=== PATIENT | female | born 1950 | race Caucasian/White ===

== ENCOUNTER 2017-01-26 18:14 | Emergency (ER) | payer OTHER ==
[~2017-01-26 18:14] MED LIST: ASCA500 PO; ASPI81TA28 PO; EFF/375 PO; GLC/500 PO; HYDR-4715 PO; LORA0.5T12 PO; LOVA20TA4 PO; MELO7.5T5 PO; METO100T44 PO; MULTCAP42 PO; OMEG-112 PO; PRLSR20 PO; VALS-10 PO
[2017-01-26 18:17] VITALS: Ht 157.5 cm
[2017-01-26] MEDS ORDERED: SODIUM CHLORIDE 0.9% 1000ML 1,000 ML IV STA (18:30)
[2017-01-26] MEDS ORDERED: KETOROLAC TROMETHAMINE 30 MG/ML VIAL IV STA (18:30)
[2017-01-26] MEDS ORDERED: CEFTRIAXONE SOD INJ 1 GM ADDVIAL IV STA (18:30)
[2017-01-26] MEDS ORDERED: ACETAMINOPHEN 500 MG TAB PO STA (18:30)
[2017-01-26] MEDS ORDERED: HYDR-2977 PO (18:42)
[2017-01-26] MEDS ORDERED: GLC/500 PO (18:42)
[2017-01-26] MEDS ORDERED: GLC500 PO (18:42)
[2017-01-26] MEDS ORDERED: TPRSR/100 PO (18:42)
[2017-01-26] MEDS ORDERED: NRV/5 PO (18:42)
[2017-01-26] MEDS ORDERED: VALS-59 PO (18:42)
[2017-01-26] MEDS ORDERED: VENL37.593 PO (18:42)
[2017-01-26] MEDS ORDERED: AMR2 PO (18:42)
[2017-01-26] MEDS ORDERED: LPT40 PO (18:42)
[2017-01-26] MEDS ORDERED: OMEP20CA9 PO (18:42)
--- NOTE | 2017-01-26 19:09 | DIAGNOSTIC IMAGING REPORT ---
CHEST ONE VIEW PORTABLE CLINICAL HISTORY: 66 years-old Female presenting with Evaluate Fever/Sepsis. TECHNIQUE: Portable upright AP view of the chest was obtained. COMPARISON: 09/11/2015. FINDINGS: Atherosclerosis of aortic arch. Cardiac silhouette top normal in size. Mildly low lung volumes with hypoventilatory changes. Apparent opacity at the paramediastinal right apex likely relates to costochondral calcification. Bandlike opacity in the left midlung is unchanged from prior area no new focal infiltrate. No large effusion or pneumothorax. Degenerative changes of the thoracic spine. Degenerative changes of the acromioclavicular and glenohumeral joints. Near complete effacement of the right acromiohumeral interval could suggest complete rotator cuff tear. Cholecystectomy clips. IMPRESSION: 1. Mildly low lung volumes with hypoventilatory changes. No focal infiltrate to suggest pneumonia. Electronically signed by: Felix Brown M.D. 01/26/2017 7:08 PM Dictated Date/Time: 01/26/2017 7:06 PM
[2017-01-26 19:22] LABS: BASO % 0.1 %; BASO ABS # 0.02 K/uL (0-0.2); COMPLETE YES; HEMATOCRIT 38.9 % (37-47); IG% 0.4 %; LYMPH % 4.4 %; LYMPH ABS # 0.71 K/uL (1.2-3.4); MEAN CELL VOLUME 90.3 fL (80-100); MEAN CORPUSCULAR HEMOGLOBIN 31.1 pg (25-34); MEAN CORPUSCULAR HGB CONC 34.4 g/dl (32-36); MEAN PLATELET VOLUME 9.6 fL (7.4-10.4); NEUT % 87.1 %; PLATELET COUNT 186 K/uL (130-400); RED BLOOD COUNT 4.31 M/uL (4.2-5.4); WHITE BLOOD COUNT 16.32 K/uL (4.8-10.8)
[2017-01-26 19:23] LABS: URINE APPEARANCE TURBID (CLEAR); URINE BILIRUBIN NEG (NEG); URINE COLOR DK YELLOW; URINE EPITHELIAL CELL AUTO >30 /lpf (0-5); URINE NITRITE POS (NEG); URINE SPECIFIC GRAVITY 1.018 (1.000-1.030); UROBILINOGEN NEG (NEG); ZZUR CULT IF INDIC CLEAN CATCH YES
[2017-01-26 19:25] LABS: MANUAL MICROSCOPIC REQUIRED? NO; REVIEW REQ? NO
[2017-01-26 19:44] LABS: ALT/SGPT 21 U/L (12-78); BLOOD UREA NITROGEN 16 mg/dl (7-18); BUN/CREATININE RATIO 19.5 (10-20); CALCIUM 8.2 mg/dl (8.5-10.1); CARBON DIOXIDE 26 mmol/L (21-32); CHLORIDE 95 mmol/L (98-107); GLUCOSE 237 mg/dl (70-99); POTASSIUM 3.3 mmol/L (3.5-5.1); SODIUM 130 mmol/L (136-145)
[2017-01-26 19:45] VITALS: TEMP 38.2
[2017-01-26] MEDS ORDERED: SULFAMETHOXAZOLE/TRIMETHOPRIM DS 800/160MG TAB PO ONE (19:45)
[2017-01-26 19:49] LABS: ALKALINE PHOSPHATASE 77 U/L (45-117); AST/SGOT 15 U/L (15-37); CKMB/CK RATIO 0.9 (0-3.0)
[2017-01-26] MEDS ORDERED: SULF800T23 PO (19:57)
--- NOTE | 2017-01-26 19:58 | EMERGENCY ROOM VISIT NOTE ---
History Report prepared by Pamella: Lionel Bailey Under the Supervision of: Dr. Robby Nelson D.O. First contact with patient: 18:22 Chief Complaint: ILLNESS Stated Complaint: WEAK,HURTING ALL OVER,TROUBLE WITH BOWELS/URINATIO History of Present Illness The patient is a 66 year old female who presents to the Emergency Room with complaints of constant weakness for the past few days. She additionally states that she has been having a headache, and she has been having urinary burning for the past two weeks. She states that she is urinating frequently small amounts and more at night. The patient notes that she has not taken any medications for the burning. She additionally reports that she had a fever and chills yesterday. The patient denies any nausea, vomiting, runny nose, cough, sore throat, and abdominal pain. Source of History: patient Onset: a few days ago Position: other (global) Quality: other (weakness) Timing: constant Associated Symptoms: + fevers, + chills, + headache, + urinary symptoms, No nausea, No vomiting, No abdominal pain Review of Systems See HPI for pertinent positives & negatives. A total of 10 systems reviewed and were otherwise negative. Past Medical & Surgical Medical Problems: (1) Degenerative joint disease (DJD) of hip Family History No pertinent family history Social History Smoking Status: Never Smoker Marital Status: Housing Status: lives with family Current/Historical Medications Scheduled Amlodipine Besylate (Amlodipine Besylate), 5 MG PO DAILY Ascorbic Acid (Vitamin C), 500 MG PO QAM Aspirin (Aspirin Ec), 81 MG PO DAILY Atorvastatin (Atorvastatin Calcium), 40 MG PO QPM Glimepiride (Glimepiride), 2 MG PO DAILY Hydralazine HCl (Hydralazine HCl), 10 MG PO TID Meloxicam (Mobic), 7.5 MG PO BID Metformin HCl (Metformin HCl), 500 MG PO QAM Metformin Hcl (Glucophage), 1,000 MG PO QPM Metoprolol Succinate (Metoprolol Succinate ER), 100 MG PO DAILY Multiple Vitamin (Multivitamins), 1 TAB PO QAM Lcwrh-1-Rssp Ethyl Esters ([place]-3), 1 CAP PO QAM Omeprazole (Prilosec), 20 MG PO BID Sulfa/Trimethoprim (Bactrim Ds 800MG/160MG), 1 TAB PO BID Valsartan (Valsartan), 320 MG PO DAILY Venlafaxine Hcl (Venlafaxine Extended Rel), 37.5 MG PO DAILY Allergies Coded Allergies: Latex1 -Allergic Contact Dermititis (Verified Allergy, Intermediate, "red welts, 09/10/15) Morphine (Verified Allergy, Intermediate, HIVES, 09/10/15) Hydrocodone (Verified Allergy, Mild, "itching", 09/10/15) Tramadol (Verified Allergy, Mild, "itching", 09/10/15) Amitriptyline (Verified Allergy, Unknown, throat swells, 09/10/15) Levofloxacin (Verified Allergy, Unknown, UNKNOWN, 09/10/15) Rofecoxib (Verified Allergy, Unknown, `, 09/10/15) Lisinopril (Verified Adverse Reaction, Mild, "cough", 09/10/15) Nortriptyline (Verified Adverse Reaction, Mild, "was wide awake", 09/10/15) CI Pigment Blue 63 (Verified Adverse Reaction, Unknown, "severe muscle aches", 09/10/15) Duloxetine (Verified Adverse Reaction, Unknown, "severe muscle aches", ) Physical Exam Vital Signs Date Time Temp Pulse Resp B/P (MAP) Pulse Ox O2 Delivery O2 Flow Rate FiO2 01/26/17 19:45 38.2 87 01/26/17 19:02 83 01/26/17 18:17 38.3 86 18 151/83 94 Room Air Physical Exam CONSTITUTIONAL/VITAL SIGNS: Reviewed / noted above. GENERAL: Non-toxic in appearance. INTEGUMENTARY: Warm, dry, and [place]. HEAD: Normocephalic. EYES: without scleral icterus or trauma. ENT/OROPHARYNX: clear and moist. LYMPHADENOPATHY/NECK: Is supple without lymphadenopathy or meningismus. RESPIRATORY: Lungs clear and equal. CARDIOVASCULAR: Regular rate and rhythm. GI/ABDOMEN: Soft and nontender. No organomegaly or pulsatile mass. No rebound or guarding. Normal bowel sounds. EXTREMITIES: Warm and well perfused. BACK: Bilateral CVA tenderness NEUROLOGICAL: Intact without focal deficits. PSYCHIATRIC: normal affect. MUSCULOSKELETAL: Normally developed with good muscle tone. Medical Decision & Procedures ER Provider Diagnostic Interpretation: Radiology results as stated below per my review and radiologist interpretation: CHEST ONE VIEW PORTABLE CLINICAL HISTORY: 66 years-old Female presenting with Evaluate Fever/Sepsis. TECHNIQUE: Portable upright AP view of the chest was obtained. COMPARISON: 09/11/2015. FINDINGS: Atherosclerosis of aortic arch. Cardiac silhouette top normal in size. Mildly low lung volumes with hypoventilatory changes. Apparent opacity at the paramediastinal right apex likely relates to costochondral calcification. Bandlike opacity in the left midlung is unchanged from prior area no new focal infiltrate. No large effusion or pneumothorax. Degenerative changes of the thoracic spine. Degenerative changes of the acromioclavicular and glenohumeral joints. Near complete effacement of the right acromiohumeral interval could suggest complete rotator cuff tear. Cholecystectomy clips. IMPRESSION: 1. Mildly low lung volumes with hypoventilatory changes. No focal infiltrate to suggest pneumonia. Electronically signed by: Felix Brown M.D. 01/26/2017 7:08 PM Dictated Date/Time: 01/26/2017 7:06 PM Laboratory Results 01/26/17 18:52 Red Blood Count 4.31, Mean Corpuscular Volume 90.3, Mean Corpuscular Hemoglobin 31.1, Mean Corpuscular Hemoglobin Concent 34.4, Mean Platelet Volume 9.6, Neutrophils (%) (Auto) 87.1, Lymphocytes (%) (Auto) 4.4, Monocytes (%) (Auto) 8.0, Eosinophils (%) (Auto) 0.0, Basophils (%) (Auto) 0.1, Neutrophils # (Auto) 14.22, Lymphocytes # (Auto) 0.71, Monocytes # (Auto) 1.30, Eosinophils # (Auto) 0.00, Basophils # (Auto) 0.02 01/26/17 18:52 Test 01/26/17 18:21 01/26/17 18:45 01/26/17 18:52 Bedside Glucose 212 mg/dl (70-90) Urine Color DK YELLOW Urine Appearance TURBID (CLEAR) Urine pH 6.0 (4.5-7.5) Urine Specific [place] 1.018 (1.000-1.030) Urine Protein 2+ (NEG) Urine Glucose (UA) 1+ (NEG) Urine Ketones 3+ (NEG) Urine Occult Blood 2+ (NEG) Urine Nitrite POS (NEG) Urine Bilirubin NEG (NEG) Urine Urobilinogen NEG (NEG) Urine Leukocyte Esterase LARGE (NEG) Urine WBC (Auto) >30 /hpf (0-5) Urine RBC (Auto) 10-30 /hpf (0-4) Urine Hyaline Casts (Auto) 1-5 /lpf (0-5) Urine Epithelial Cells (Auto) >30 /lpf (0-5) Urine Bacteria (Auto) 4+ (NEG) White Blood Count 16.32 K/uL (4.8-10.8) Red Blood Count 4.31 M/uL (4.2-5.4) Hemoglobin 13.4 g/dL (12.0-16.0) Hematocrit 38.9 % (37-47) Mean Corpuscular Volume 90.3 fL (80-100) Mean Corpuscular Hemoglobin 31.1 pg (25-34) Mean Corpuscular Hemoglobin Concent 34.4 g/dl (32-36) Platelet Count 186 K/uL (130-400) Mean Platelet Volume 9.6 fL (7.4-10.4) Neutrophils (%) (Auto) 87.1 % Lymphocytes (%) (Auto) 4.4 % Monocytes (%) (Auto) 8.0 % Eosinophils (%) (Auto) 0.0 % Basophils (%) (Auto) 0.1 % Neutrophils # (Auto) 14.22 K/uL (1.4-6.5) Lymphocytes # (Auto) 0.71 K/uL (1.2-3.4) Monocytes # (Auto) 1.30 K/uL (0.11-0.59) Eosinophils # (Auto) 0.00 K/uL (0-0.5) Basophils # (Auto) 0.02 K/uL (0-0.2) RDW Standard Deviation 41.0 fL (36.4-46.3) RDW Coefficient of Variation 12.3 % (11.5-14.5) Immature Granulocyte % (Auto) 0.4 % Immature Granulocyte # (Auto) 0.07 K/uL (0.00-0.02) Anion Gap 9.0 mmol/L (3-11) Estimated GFR () 87.8 Estimated GFR (Non- 75.8 BUN/Creatinine Ratio 19.5 (10-20) Calcium Level 8.2 mg/dl (8.5-10.1) Total Bilirubin 1.7 mg/dl (0.2-1) Direct Bilirubin 0.4 mg/dl (0-0.2) Aspartate Amino Transf (AST/SGOT) 15 U/L (15-37) Alanine Aminotransferase (ALT/SGPT) 21 U/L (12-78) Alkaline Phosphatase 77 U/L (45-117) Total Creatine Kinase 86 U/L (26-192) Creatine Kinase MB 0.8 ng/ml (0.5-3.6) Creatine Kinase MB Ratio 0.9 (0-3.0) Total Protein 7.3 gm/dl (6.4-8.2) Albumin 3.2 gm/dl (3.4-5.0) Laboratory results as stated above per my review. Medications Administered Medications (Trade) Dose Ordered Sig/Shanta Route Start Time Stop Time Status Last Admin Dose Admin Sodium Chloride 1,000 ml @ 999 mls/hr Q1H1M STAT IV 01/26/17 18:30 01/26/17 19:30 DC 01/26/17 19:10 999 MLS/HR Acetaminophen (Tylenol Tab) 1,000 mg NOW STAT PO 01/26/17 18:30 01/26/17 18:35 DC 01/26/17 19:11 1,000 MG Ceftriaxone Sodium (Rocephin Inj) 1 gm NOW STAT IV 01/26/17 18:30 01/26/17 18:35 DC 01/26/17 19:10 1 GM Ketorolac Tromethamine (Toradol Inj) 30 mg NOW STAT IV 01/26/17 18:30 01/26/17 18:35 DC 01/26/17 19:11 30 MG Trimethoprim/ Sulfamethoxazole (Septra Ds 800/ 160MG Tab) 1 tab NOW ONCE PO 01/26/17 19:45 01/26/17 19:52 DC 01/26/17 19:58 1 TAB ED Course 1821: Previous medical records were reviewed. The patient was evaluated in room C7. A complete history and physical examination was performed. 0: Toradol 30mg IV, Rocephin 1gm IV, Tylenol Tab 1000mg PO, Sodium Chloride 1000 ml @ 999 mls/hr IV 1944: Septra Ds 800/160mg Tab PO 1957: On reevaluation, the patient is doing well. I discussed the results and findings with the patient. She verbalized agreement of the treatment plan. She was discharged home. Medical Decision Differential includes viral illness, influenza, streptococcal pharyngitis, meningitis, pneumonia, sinusitis, UTI, pyelonephritis, otitis media. This is a 66-year-old female who presents to the ED with a chief complaint of generalized weakness. The patient reports painful urination for the past week to 2 weeks. She also reports achiness, headache and weakness this started a couple of days ago. She denies any upper respiratory complaints. No nausea vomiting. She has had subjective fevers yesterday and a fever today here. Temperature here is 38.3. Vital signs are otherwise stable. Physical exam did reveals some mild bilateral CVA tenderness. Laboratory studies reveal findings suggesting a UTI. Blood cell count is elevated at 16,000. Glucose is slightly elevated. She is diabetic. The patient was treated with 1 L normal saline IV. Rocephin 1 g IV as well as by mouth Bactrim. She was given by mouth Tylenol and IV Toradol. She was told the results of the test per she was feeling better. She is felt to be stable for discharge and outpatient follow-up. She was discharged on Bactrim. She's not had any nausea or vomiting. If her symptoms worsen she will return for reassessment. Medication Reconcilliation Current Medication List: was personally reviewed by me Blood Pressure Screening Patient's blood pressure: Elevated blood pressure Blood pressure disposition: Referred to PCP Impression Primary Impression: UTI (urinary tract infection) Additional Impression: Pyelonephritis Scribe Attestation The scribe's documentation has been prepared under my direction and personally reviewed by me in its entirety. I confirm that the note above accurately reflects all work, treatment, procedures, and medical decision making performed by me. Departure Information Dispostion Home / Self-Care Prescriptions Sulfa/Trimethoprim (Bactrim Ds 800MG/160MG) Tab 1 TAB PO BID, #14 TAB Prov: Robby Nelson D.O. 01/26/17 Referrals Jeff Montague M.D. (PCP) Forms HOME CARE DOCUMENTATION FORM, IMPORTANT VISIT INFORMATION, WORK / SCHOOL INSTRUCTIONS Patient Instructions ED UTI Cystitis Female, My [facility] Additional Instructions Follow-up with your doctor for further care and evaluation in 1-2 days. Return to the emergency department for worsening or new symptoms or any concerns. You have been examined and treated today on an emergency basis only. This is not a substitute for, or an effort to provide, complete comprehensive medical care. It is impossible to recognize and treat all injuries or illnesses in a single emergency department visit. It is therefore important that you follow up closely with your doctor. Call as soon as possible for an appointment. Problem Qualifiers
[2017-01-26 20:22] VITALS: BP 139/72; PULSE 81; O2SAT 95
== END 2017-01-26 20:23 | disposition home or self-care (01) ==
LOC: C.EDB 18:15 → C.EDC 20:23
DX: N39.0 Urinary tract infection, site not specified (principal); N12 Tubulo-interstitial nephritis, not specified as acute or chronic; M16.10 Unilateral primary osteoarthritis, unspecified hip; Z79.82 Long term (current) use of aspirin

== ENCOUNTER 2017-01-27 12:36 | Inpatient (IN) | payer OTHER ==
[~2017-01-27] VITALS: Ht 157.5 cm; Wt 99.0 kg
[~2017-01-27 12:36] MED LIST changes: +AMR2 PO; -EFF/375 PO; +GLC500 PO; +HYDR-2977 PO; -HYDR-4715 PO; -LORA0.5T12 PO; -LOVA20TA4 PO; +LPT40 PO; -METO100T44 PO; +NRV/5 PO; +OMEP20CA9 PO; -PRLSR20 PO; +SULF800T23 PO; +TPRSR/100 PO; -VALS-10 PO; +VALS-59 PO; +VENL37.593 PO
--- NOTE | 2017-01-27 12:51 | EMERGENCY ROOM VISIT NOTE ---
History Report prepared by Pamella: John Sommers Under the Supervision of: Dr. Robby Luu M.D. First contact with patient: 12:47 Chief Complaint: REFERRED BY DOCTOR Stated Complaint: SEEN HERE LAST NIGHT, WAS CALLED TO COME BACK History of Present Illness The patient is a 66 year old female who presents to the Emergency Room with complaints of worsening, severe, headache beginning three days ago. She notes Tylenol helps her headache. The patient states she was evaluated last night in the ED for chest tightness, headache, and abdominal pain that radiates to her back. She reports since last night she has developed diarrhea. The patient notes she received a call today stating her blood and urine cultures were positive for bacteria. She denies a history of positive cultures. Source of History: patient Onset: three days ago Position: head Symptom Intensity: severe Quality: ache Timing: worsening Modifying Factors (Relieving): tylenol Associated Symptoms: + chest pain (tightness), + abdominal pain, + diarrhea Note: Denies a history of positive cultures Review of Systems See HPI for pertinent positives & negatives. A total of 10 systems reviewed and were otherwise negative. Past Medical & Surgical Medical Problems: (1) Bacteremia (2) Degenerative joint disease (DJD) of hip Family History Diabetes mellitus Hypertension Social History Smoking Status: Never Smoker Smokeless Tobacco Use: No Alcohol Use: none Marital Status: Housing Status: lives with family Occupation Status: unemployed Current/Historical Medications Scheduled Amlodipine Besylate (Amlodipine Besylate), 5 MG PO DAILY Ascorbic Acid (Vitamin C), 500 MG PO QAM Aspirin (Aspirin Ec), 81 MG PO DAILY Atorvastatin (Atorvastatin Calcium), 40 MG PO QPM Glimepiride (Glimepiride), 2 MG PO DAILY Hydralazine HCl (Hydralazine HCl), 10 MG PO TID Meloxicam (Mobic), 7.5 MG PO BID Metformin HCl (Metformin HCl), 500 MG PO QAM Metformin Hcl (Glucophage), 1,000 MG PO QPM Metoprolol Succinate (Metoprolol Succinate ER), 100 MG PO DAILY Multiple Vitamin (Multivitamins), 1 TAB PO QAM Emirc-4-Pfwq Ethyl Esters ([place]-3), 1 CAP PO QAM Omeprazole (Prilosec), 20 MG PO BID Sulfa/Trimethoprim (Bactrim Ds 800MG/160MG), 1 TAB PO BID Valsartan (Valsartan), 320 MG PO DAILY Venlafaxine Hcl (Venlafaxine Extended Rel), 37.5 MG PO DAILY Allergies Coded Allergies: Latex1 -Allergic Contact Dermititis (Verified Allergy, Intermediate, "red welts, 01/27/17) Morphine (Verified Allergy, Intermediate, HIVES, 01/27/17) Hydrocodone (Verified Allergy, Mild, "itching", 01/27/17) Tramadol (Verified Allergy, Mild, "itching", 01/27/17) Amitriptyline (Verified Allergy, Unknown, throat swells, 01/27/17) Levofloxacin (Verified Allergy, Unknown, UNKNOWN, 01/27/17) Rofecoxib (Verified Allergy, Unknown, `, 01/27/17) Lisinopril (Verified Adverse Reaction, Mild, "cough", 01/27/17) Nortriptyline (Verified Adverse Reaction, Mild, "was wide awake", 01/27/17 ) CI Pigment Blue 63 (Verified Adverse Reaction, Unknown, "severe muscle aches", 01/27/17) Duloxetine (Verified Adverse Reaction, Unknown, "severe muscle aches", ) Physical Exam Vital Signs Date Time Temp Pulse Resp B/P (MAP) Pulse Ox O2 Delivery O2 Flow Rate FiO2 01/27/17 17:09 37.8 83 18 141/72 96 Room Air 01/27/17 15:43 37.2 79 18 136/72 96 Room Air 01/27/17 14:19 78 143/76 96 01/27/17 13:47 77 01/27/17 12:45 36.8 76 22 131/80 100 Room Air Physical Exam GENERAL: Patient is a healthy-appearing well-nourished 66 year old female. No evidence of meningitis or encephalitis. HEAD: Normocephalic atraumatic EYES: Ocular movements intact pupils equal and react to light OROPHARYNX mucous membranes are moist no exudates present no erythema or edema present NECK: Supple no nuchal rigidity CHEST: Good equal expansion LUNGS: Clear and equal to auscultation CARDIAC: Normal S1 and S2 ABDOMEN: Soft nontender no guarding BACK: No CVA tenderness EXTREMITIES: No pain upon palpation normal muscle strength in all groups no clubbing cyanosis or edema NEURO: Patient is following commands and answering questions appropriately. Alert and oriented x3 Cranial Nerves 2-12 grossly intact Medical Decision & Procedures ER Provider Diagnostic Interpretation: Radiology results as stated below per my review and radiologist interpretation: CHEST ONE VIEW PORTABLE HISTORY: Sepsis COMPARISON: Chest 01/26/2017. FINDINGS: There are low lung volumes. The heart remains top normal in size. No pleural effusions. No pneumothorax. A few linear densities within the left mid to lower lung zone favor scarring or atelectasis. This remains unchanged. No new focal lung consolidations. No evidence for pulmonary edema. IMPRESSION: No significant change compared to the prior study. No acute process. Electronically signed by: Dimitry Glover M.D. 01/27/2017 2:21 PM Dictated Date/Time: 01/27/2017 2:18 PM Laboratory Results 01/27/17 13:25 Red Blood Count 4.04, Mean Corpuscular Volume 89.6, Mean Corpuscular Hemoglobin 30.9, Mean Corpuscular Hemoglobin Concent 34.5, Mean Platelet Volume 9.6, Neutrophils (%) (Auto) 84.7, Lymphocytes (%) (Auto) 7.5, Monocytes (%) (Auto) 7.4, Eosinophils (%) (Auto) 0.0, Basophils (%) (Auto) 0.2, Neutrophils # (Auto) 10.92, Lymphocytes # (Auto) 0.97, Monocytes # (Auto) 0.96, Eosinophils # (Auto) 0.00, Basophils # (Auto) 0.02 01/27/17 13:25 Test 01/27/17 13:13 01/27/17 13:25 01/27/17 13:32 01/27/17 15:00 Influenza Type A (RT-PCR) Neg for Influ A (NEG) Influenza Type A Antigen Neg for Influ A (NEG) Influenza Type B Antigen Neg for Influ B (NEG) Influenza Type B (RT-PCR) Neg for Influ B (NEG) White Blood Count 12.90 K/uL (4.8-10.8) Red Blood Count 4.04 M/uL (4.2-5.4) Hemoglobin 12.5 g/dL (12.0-16.0) Hematocrit 36.2 % (37-47) Mean Corpuscular Volume 89.6 fL (80-100) Mean Corpuscular Hemoglobin 30.9 pg (25-34) Mean Corpuscular Hemoglobin Concent 34.5 g/dl (32-36) Platelet Count 160 K/uL (130-400) Mean Platelet Volume 9.6 fL (7.4-10.4) Neutrophils (%) (Auto) 84.7 % Lymphocytes (%) (Auto) 7.5 % Monocytes (%) (Auto) 7.4 % Eosinophils (%) (Auto) 0.0 % Basophils (%) (Auto) 0.2 % Neutrophils # (Auto) 10.92 K/uL (1.4-6.5) Lymphocytes # (Auto) 0.97 K/uL (1.2-3.4) Monocytes # (Auto) 0.96 K/uL (0.11-0.59) Eosinophils # (Auto) 0.00 K/uL (0-0.5) Basophils # (Auto) 0.02 K/uL (0-0.2) RDW Standard Deviation 40.0 fL (36.4-46.3) RDW Coefficient of Variation 12.2 % (11.5-14.5) Immature Granulocyte % (Auto) 0.2 % Immature Granulocyte # (Auto) 0.03 K/uL (0.00-0.02) Prothrombin Time 11.3 SECONDS (9.0-12.0) Prothromb Time International Ratio 1.1 (0.9-1.1) Activated Partial Thromboplast Time 27.5 SECONDS (21.0-31.0) Partial Thromboplastin Ratio 1.1 Anion Gap 9.0 mmol/L (3-11) Est Creatinine Clear Calc Drug Dose 72.2 ml/min Estimated GFR () 85.2 Estimated GFR (Non- 73.5 BUN/Creatinine Ratio 18.1 (10-20) Calcium Level 7.7 mg/dl (8.5-10.1) Total Bilirubin 1.0 mg/dl (0.2-1) Aspartate Amino Transf (AST/SGOT) 16 U/L (15-37) Alanine Aminotransferase (ALT/SGPT) 20 U/L (12-78) Alkaline Phosphatase 77 U/L (45-117) Total Creatine Kinase 103 U/L (26-192) Creatine Kinase MB 1.8 ng/ml (0.5-3.6) Creatine Kinase MB Ratio 1.7 (0-3.0) Troponin I < 0.015 ng/ml (0-0.045) Total Protein 6.6 gm/dl (6.4-8.2) Albumin 2.7 gm/dl (3.4-5.0) Globulin 3.9 gm/dl (2.5-4.0) Albumin/Globulin Ratio 0.7 (0.9-2) Bedside Lactic Acid Venous 1.78 mmol/L (0.90-1.70) Urine Color YELLOW Urine Appearance CLOUDY (CLEAR) Urine pH 6.5 (4.5-7.5) Urine Specific [place] 1.010 (1.000-1.030) Urine Protein TRACE (NEG) Urine Glucose (UA) TRACE (NEG) Urine Ketones TRACE (NEG) Urine Occult Blood NEG (NEG) Urine Nitrite NEG (NEG) Urine Bilirubin NEG (NEG) Urine Urobilinogen NEG (NEG) Urine Leukocyte Esterase SMALL (NEG) Urine WBC (Auto) 10-30 /hpf (0-5) Urine RBC (Auto) 0-4 /hpf (0-4) Urine Hyaline Casts (Auto) 0 /lpf (0-5) Urine Epithelial Cells (Auto) 10-20 /lpf (0-5) Urine Bacteria (Auto) NEG (NEG) Labs reviewed by ED physician. Medications Administered Medications (Trade) Dose Ordered Sig/Shanta Route Start Time Stop Time Status Last Admin Dose Admin Sodium Chloride 500 ml @ 999 mls/hr Q31M ONCE IV 01/27/17 13:00 01/27/17 13:30 DC 01/27/17 13:18 999 MLS/HR Vancomycin HCl (Vancomycin 1gm/ 270ml Nss) 1 gm ONE STAT IV 01/27/17 13:00 01/27/17 13:03 DC 01/27/17 13:46 1 GM Cefepime HCl 2000 mg/Dextrose 122 ml @ 200 mls/hr NOW STAT IV 01/27/17 13:00 01/27/17 13:36 DC 01/27/17 13:43 200 MLS/HR Clindamycin Phosphate (Cleocin 600mg/ 54ml D5W) 600 mg ONE STAT IV 01/27/17 13:00 01/27/17 13:03 DC 01/27/17 13:00 600 MG Ketorolac Tromethamine (Toradol Inj) 30 mg NOW STAT IV 01/27/17 13:07 01/27/17 13:10 DC 01/27/17 13:41 30 MG Prochlorperazine Edisylate (Compazine Inj) 10 mg NOW STAT IV 01/27/17 13:07 01/27/17 13:10 DC 01/27/17 13:51 10 MG Potassium Chloride (Klor-Con M10) 40 meq NOW STAT PO 01/27/17 14:31 01/27/17 14:32 DC 01/27/17 14:43 40 MEQ ECG Indication: other (sepsis) Rate (beats per minute): 74 Rhythm: normal sinus Findings: no acute ischemic change, no ectopy ED Course 1256: Past medical records reviewed. The patient was evaluated in room B05. A complete history and physical examination was performed. 1300: Ordered Clindamycin Phosphate 600mg IV, Cefepime HCl 2000mg/Dextrose 122ml @ 200 mls/hr, Vancomycin HCl 1gm IV, Sodium Chloride 500 ml @ 999 mls/hr IV 1307: Prochlorperazine Edisylate 10mg IV, Ketorolac Tromethamine 30mg IV 1431: Ordered Potassium Chloride 40 meq PO 1516: I discussed the patient's case with Kala Handy [facility]martin. The patient will be evaluated for further management and care. Medical Decision Differential diagnosis: Etiologies such as sepsis, UTI, pneumonia, metabolic, electrolyte abnormalities , cardiac sources, intracerebral event, toxicologic, neurologic, as well as others were entertained. This is a 66-year-old female who presents back to the emergency department after having positive blood cultures that were drawn yesterday. In addition the patient also has a positive urine culture. She has no evidence of meningitis encephalitis on examination. She does have slight elevation in her lactic acid as well as elevation in her white blood count cell count. She was pancultured up again and started on additional antibiotics including cefepime clindamycin and vancomycin. I did discuss her case with the hospitalist service who agreed to admit the patient. Patient was in agreement with the treatment plan. Medication Reconcilliation Current Medication List: was personally reviewed by me Blood Pressure Screening Patient's blood pressure: Elevated blood pressure Monitored by hospitalist. Consults Time Called: 1428 Consulting Physician: Kala Handy Hospitalist Returned Call: [phone] [facility] The patient will be evaluated for further management and care. Impression Primary Impression: UTI (urinary tract infection) Scribe Attestation The scribe's documentation has been prepared under my direction and personally reviewed by me in its entirety. I confirm that the note above accurately reflects all work, treatment, procedures, and medical decision making performed by me. Departure Information Dispostion Being Evaluated By Hospitalist Referrals Jeff Montague M.D. (PCP) Patient Instructions My [facility] Problem Qualifiers Primary Impression: UTI (urinary tract infection) Urinary tract infection type: acute cystitis Hematuria presence: without hematuria Qualified Codes: N30.00 - Acute cystitis without hematuria
[2017-01-27] MEDS ORDERED: CEFEPIME IV 2,000 MG in DEXTROSE 5% 100ML 100 ML IV STA (13:00)
[2017-01-27] MEDS ORDERED: SODIUM CHLORIDE 0.9% 1000ML 500 ML IV ONE (13:00)
[2017-01-27] MEDS ORDERED: VANCOMYCIN 1GM/270ML NSS IV STA (13:00)
[2017-01-27] MEDS ORDERED: CLINDAMYCIN 600 MG/54 ML D5W IV STA (13:00)
[2017-01-27] MEDS ORDERED: DiphenhydrAMINE HCL 50 MG/ML VIAL IV STA (13:07)
[2017-01-27] MEDS ORDERED: PROCHLORPERAZINE 5 MG/ML 2 ML VIAL IV STA (13:07)
[2017-01-27] MEDS ORDERED: KETOROLAC TROMETHAMINE 30 MG/ML VIAL IV STA (13:07)
[2017-01-27 13:54] LABS: BASO % 0.2 %; BASO ABS # 0.02 K/uL (0-0.2); COMPLETE YES; HEMATOCRIT 36.2 % (37-47); IG% 0.2 %; LYMPH % 7.5 %; LYMPH ABS # 0.97 K/uL (1.2-3.4); MEAN CELL VOLUME 89.6 fL (80-100); MEAN CORPUSCULAR HEMOGLOBIN 30.9 pg (25-34); MEAN CORPUSCULAR HGB CONC 34.5 g/dl (32-36); MEAN PLATELET VOLUME 9.6 fL (7.4-10.4); MONO % 7.4 %; NEUT % 84.7 %; PLATELET COUNT 160 K/uL (130-400); RED BLOOD COUNT 4.04 M/uL (4.2-5.4)
[2017-01-27 14:03] LABS: INR 1.1 (0.9-1.1); PARTIAL THROMBOPLASTIN RATIO 1.1; PROTHROMBIN TIME (PATIENT) 11.3 SECONDS (9.0-12.0)
[2017-01-27 14:17] LABS: BUN/CREATININE RATIO 18.1 (10-20); CALCIUM 7.7 mg/dl (8.5-10.1); CREATININE 0.82 mg/dl (0.60-1.20); POTASSIUM 3.2 mmol/L (3.5-5.1)
--- NOTE | 2017-01-27 14:23 | DIAGNOSTIC IMAGING REPORT ---
CHEST ONE VIEW PORTABLE HISTORY: Sepsis COMPARISON: Chest 01/26/2017. FINDINGS: There are low lung volumes. The heart remains top normal in size. No pleural effusions. No pneumothorax. A few linear densities within the left mid to lower lung zone favor scarring or atelectasis. This remains unchanged. No new focal lung consolidations. No evidence for pulmonary edema. IMPRESSION: No significant change compared to the prior study. No acute process. Electronically signed by: Dimitry Glover M.D. 01/27/2017 2:21 PM Dictated Date/Time: 01/27/2017 2:18 PM
[2017-01-27 14:24] LABS: ALB/GLOB RATIO 0.7 (0.9-2)
[2017-01-27] MEDS ORDERED: POTASSIUM CHLORIDE 10 MEQ TABCR PO STA (14:31)
[2017-01-27 14:48] LABS: CKMB/CK RATIO 1.7 (0-3.0)
[2017-01-27 15:23] LABS: URINE APPEARANCE CLOUDY (CLEAR); URINE BILIRUBIN NEG (NEG); URINE COLOR YELLOW; URINE NITRITE NEG (NEG); URINE PH 6.5 (4.5-7.5); UROBILINOGEN NEG (NEG)
[2017-01-27 15:24] LABS: MANUAL MICROSCOPIC REQUIRED? NO; REVIEW REQ? YES
[2017-01-27 15:33] LABS: ZZUR CULT IF INDIC CLEAN CATCH YES
[2017-01-27 15:42] LABS: INFLUENZA A PCR Neg for Influ A (NEG); INFLUENZA B PCR Neg for Influ B (NEG)
[2017-01-27] MEDS ORDERED: ONDANSETRON INJ 2 MG/ML 2 ML VIAL IV PRN (16:45)
[2017-01-27] MEDS ORDERED: CEFEPIME IV 2,000 MG in DEXTROSE 5% 100ML 100 ML IV SCH (16:45)
[2017-01-27] MEDS ORDERED: GLUCOSE 40% GEL 15 GM TUBE PO PRN (18:00)
[2017-01-27] MEDS ORDERED: GLUCOSE 10 TABS/TUBE PO PRN (18:00)
[2017-01-27] MEDS ORDERED: DEXTROSE 50% 50 ML SYR IV PRN (18:00)
[2017-01-27] MEDS ORDERED: GLUCAGON FOR INJ 1 MG VIAL SQ PRN (18:00)
[2017-01-27 18:05] VITALS: BP 141/72; PULSE 83; TEMP 37.3; O2SAT 95; Ht 157.5 cm; Wt 99.0 kg
[2017-01-27] MEDS: SODIUM CHLORIDE 0.9% 1000ML 1,000 ML IV SCH (18:26)
[2017-01-27] MEDS ORDERED: CEFEPIME CONSULT ACTIVE PRN ×2 (18:30)
--- NOTE | 2017-01-27 19:38 | HISTORY & PHYSICAL EXAMINATION ---
DATE OF ADMISSION: 01/27/2017 CHIEF COMPLAINT: Not feeling well and UTI. HISTORY OF PRESENT ILLNESS: This is a 66-year-old female with past medical history significant for diabetes, diabetic polyneuropathy, hypertension, anxiety, obesity, osteoarthrosis, hyperlipidemia, GERD, presents with UTI and bacteremia. The patient was having buring sensations while micturating and frequent urinations for about a week and a week and a half. For the last 3 days, it got worse, had running temperatures and feeling generalized weak and tired and she came to the ER yesterday, thought to have UTI and given a dose of IV Rocephin and discharged on Bactrim as she was feeling better. But today the cultures came back as bacteremia growing gram negative bacilli in the urine and the blood and she was advised to come to the ER. The patient states that she did not fill up her Bactrim tablets and not taking them. She said after she went home, she felt better yesterday after antibiotic received in the ER, but since today morning again she was feeling weak and tired and having lower abdominal pain and she complains of flank pain. Currently resting comfortably, hemodynamically stable, afebrile in the ER today. Has some headaches, no dizziness, no blurred vision, no sore throat, no cough but has some difficulty swallowing from dryness. Denies any chest pain, no shortness of breath, Normal bowel movements. Appetite is okay. No swelling in the legs. ALLERGIES: AMITRIPTYLINE, CYMBALTA, HYDROCODONE, LASIX, LISINOPRIL, MORPHINE, NORTRIPTYLINE AND TRAMADOL. PAST MEDICAL HISTORY: As mentioned above. PAST SURGICAL HISTORY: Left knee arthroscopy, carpal tunnel surgery, EGD with biopsy, left knee arthroscopy and meniscectomy, vaginal hysterectomy, cholecystectomy. MEDICATIONS: The patient is on glimepiride 2 mg p.o. daily, atorvastatin 40 mg p.o. daily, amlodipine 5 mg p.o. daily, metformin 500 mg in the a.m. and 1000 mg in p.m., Toprol-XL 100 mg p.o. daily, Levaquin 7.5 mg p.o. b.i.d., Effexor XR 37.5 mg p.o. daily, omeprazole 20 mg p.o. b.i.d., Valsartan 320 mg p.o. daily, hydralazine 10 mg p.o. t.i.d., Benadryl 25 mg p.o. q. 6 hours p.r.n., omega 3 fish oil 1000 mg p.o. b.i.d., vitamin C 500 mg p.o. daily, aspirin 81 mg p.o. daily, multivitamin 1 tablet p.o. daily. FAMILY HISTORY: Significant for brother has arthritis, diabetes. Father has diabetes. Mother has heart disorder. SOCIAL HISTORY: . No tobacco abuse, alcohol rare. No drug abuse. REVIEW OF SYMPTOMS: As per HPI. Rest of review of symptoms negative. PHYSICAL EXAMINATION: GENERAL: The patient is obese, not in distress. VITAL SIGNS: Temperature 37.2, pulse 79, respiratory rate 18, blood pressure 136/72, oxygen 96% on room air. HEENT: No pallor, no icterus. Pupils equal, round, and reactive to light. NECK: No JVD, no neck masses, no carotid bruits. CARDIOVASCULAR: S1, S2 heard, regular rate and rhythm, no murmur, no gallop. RESPIRATORY SYSTEM: Clear to auscultation bilaterally. No wheezing, no crackles. ABDOMEN: Soft, bowel sounds present. Mild abdominal discomfort mostly in the lower abdomen, mild bilateral CVA tenderness present. No guarding, no rigidity. CENTRAL NERVOUS SYSTEM: Cranial nerves II-XII are grossly intact. Nonfocal. EXTREMITIES: No edema. No erythema. LABS: WBC 12.9, hemoglobin 12.5, hematocrit 36.2, platelets 160. Sodium 129, potassium 3.2, chloride 96, bicarbonate 24, BUN 15, creatinine 0.5, serum glucose 216. Point of care lactic acid 1.7. Calcium is 7.7. Total bilirubin 1. AST 16, ALT 20. Alkaline phosphatase 77. Total creatinine kinase 103. Troponin I less than 0.015. PT 11.2, INR 1.1, APTT 27.5. Urinalysis positive for leukocyte esterase. Influenza negative. Chest x-ray no acute process seen. EKG normal sinus rhythm with a rate of 74. No acute ST changes seen. ASSESSMENT AND PLAN: This is a 66-year-old female who presents with urinary tract infection and bacteremia. 1. Urinary tract infection bacteremia, bilateral costovertebral angle mild tenderness. We will place her on IV cefepime, follow the final cultures of the blood and urine. IV fluids. We will also check renal ultrasound to rule out any pyelonephritis. Need total duration of 14 days of antibiotics. 2. Hyponatremia and hypokalemia, possibly from dehydration. We will replace the potassium. We will place her on fluids and follow the labs. 3. History of diabetes. We will hold home medication of glimepiride and metformin; place her on Lantus and insulin sliding scale. Follow the blood sugars while in the hospital. 4. History of hypertension. Continue amlodipine, Toprol-XL, hydralazine, valsartan. We will monitor the blood pressure. 5. Gastroesophageal reflux disease, continue PPI. 6. Osteoarthritis on Meloxicam which we will continue. 7. History of depression. Continue Effexor XR. 8. Deep venous thrombosis prophylaxis, Lovenox. 9. Disposition: Admit to medical floor, expect discharge home and follow with the family doctor. Level 1 full code. MTDD
[2017-01-27] MEDS: HydrALAZINE 10 MG TAB PO SCH (20:25)
[2017-01-27] MEDS: PANTOprazole SOD 40 MG TAB PO SCH (20:26)
[2017-01-27] MEDS: MELOXICAM 7.5 MG TAB PO SCH (20:26)
[2017-01-27] MEDS: ATORVASTATIN 40 MG TAB PO SCH (20:26)
[2017-01-27] MEDS: INSULIN GLARGINE SOLOSTAR 100 UNITS/ML 3 ML PEN SC SCH (20:30)
[2017-01-27] MEDS: INSULIN ASPART 100 UNITS/ML 3 ML PEN SC SCH (20:32)
[2017-01-27] MEDS: ENOXAPARIN 40 MG/0.4 ML SYR SQ SCH (20:33)
[2017-01-27] MEDS: CEFEPIME IV 2,000 MG in SYRINGE 7.5 ML IV SCH (21:27)
[2017-01-27] MEDS: ACETAMINOPHEN 325 MG TAB PO PRN (23:07)
[2017-01-27 23:09] VITALS: BP 156/82; PULSE 94; TEMP 37.8; O2SAT 95
[2017-01-28] MEDS: SODIUM CHLORIDE 0.9% 1000ML 1,000 ML IV SCH ×2 (04:32→14:00)
[2017-01-28] MEDS: CEFEPIME IV 2,000 MG in SYRINGE 7.5 ML IV SCH ×3 (05:36→22:00)
[2017-01-28] MEDS: ACETAMINOPHEN 325 MG TAB PO PRN ×2 (05:47→13:59)
--- NOTE | 2017-01-28 05:50 | DIAGNOSTIC IMAGING REPORT ---
(RENAL)RETROPERITON COMP CLINICAL HISTORY: 66 years-old Female presenting with PYELONEPHRITIS?. TECHNIQUE: Real-time grayscale and limited color Doppler ultrasound imaging of the kidneys and bladder was performed. COMPARISON: None. FINDINGS: Right kidney: Normal echogenicity. Right kidney measures 9.4 cm. No hydronephrosis. No convincing evidence of calculus or mass. Normal perfusion. Left kidney: Normal echogenicity. Left kidney measures 10.5 cm. Minimal pelviectasis. No hydronephrosis. No convincing evidence of calculus or mass. Normal perfusion. Bladder: Decompressed. Ureteral jets not visualized. Other: None. IMPRESSION: 1. Essentially normal renal ultrasound. No obstruction. Electronically signed by: Felix Brown M.D. 01/28/2017 5:48 AM Dictated Date/Time: 01/28/2017 5:47 AM
[2017-01-28 06:56] VITALS: BP 129/78; PULSE 77; TEMP 36.9; O2SAT 95
[2017-01-28 07:04] LABS: BASO % 0.1 %; BASO ABS # 0.01 K/uL (0-0.2); COMPLETE YES; EOS % 0.9 %; IG% 0.2 %; LYMPH % 6.9 %; LYMPH ABS # 0.64 K/uL (1.2-3.4); MEAN CELL VOLUME 89.2 fL (80-100); MEAN CORPUSCULAR HEMOGLOBIN 30.4 pg (25-34); MEAN CORPUSCULAR HGB CONC 34.1 g/dl (32-36); MEAN PLATELET VOLUME 9.2 fL (7.4-10.4); MONO % 12.4 %; NEUT % 79.5 %; PLATELET COUNT 157 K/uL (130-400); RED BLOOD COUNT 3.81 M/uL (4.2-5.4); WHITE BLOOD COUNT 9.26 K/uL (4.8-10.8)
[2017-01-28 07:36] LABS: BUN/CREATININE RATIO 18.4 (10-20); CALCIUM 7.5 mg/dl (8.5-10.1); CREATININE 0.65 mg/dl (0.60-1.20); MAGNESIUM 1.6 mg/dl (1.8-2.4); POTASSIUM 3.3 mmol/L (3.5-5.1)
[2017-01-28] MEDS: METOPROLOL SUCC 50MG EXT REL TAB PO SCH (07:53)
[2017-01-28] MEDS: PANTOprazole SOD 40 MG TAB PO SCH ×2 (07:53→20:24)
[2017-01-28] MEDS: HydrALAZINE 10 MG TAB PO SCH ×3 (07:54→20:23)
[2017-01-28] MEDS: MELOXICAM 7.5 MG TAB PO SCH ×2 (07:54→20:24)
[2017-01-28] MEDS: VENLAFAXINE HCL XR 37.5 MG CAPXR PO SCH (07:56)
[2017-01-28] MEDS: ASPIRIN 81 MG ECTAB PO SCH (07:56)
[2017-01-28] MEDS: MULTIVITAMIN TAB PO SCH (07:57)
[2017-01-28] MEDS: ASCORBIC ACID 500 MG TAB PO SCH (07:57)
[2017-01-28] MEDS: INSULIN ASPART 100 UNITS/ML 3 ML PEN SC SCH ×4 (08:09→20:30)
[2017-01-28] MEDS: INSULIN GLARGINE SOLOSTAR 100 UNITS/ML 3 ML PEN SC SCH ×2 (08:10→20:29)
[2017-01-28] MEDS ORDERED: POTASSIUM CHLORIDE 10 MEQ TABCR PO STA (08:25)
[2017-01-28] MEDS ORDERED: MAGNESIUM SULFATE 1GM / D5W 1 GM in PREMIXED IN D5W 100 ML IV ONE (08:45)
[2017-01-28] MEDS ORDERED: AMLODIPINE BESYLATE 5 MG TAB PO SCH (09:00)
[2017-01-28] MEDS: VALSARTAN 80 MG TAB PO SCH (09:01)
--- NOTE | 2017-01-28 13:09 | Progress Note ---
Internal Med Progress Note Date of Service: Jan 28, 2017. Provider Documentation: SUBJECTIVE: The patient was seen and examined Has had diarrhea following antibiotic given before admission Bowel has not moved since admission Body aches are better Denies any other symptoms OBJECTIVE: Vital Signs-as noted below Exam: General-no distress at rest Eyes-normal ENT-normal Neck-supple Lungs-clear to auscultate bilaterally Heart-Regular,no murmur Abdomen-Benign no masses,bowel sound present No tenderness in Renal angles Extremities-No edema Neuro-AAOx3 Lab data as noted below. ASSESSMENT & PLAN: This is a 66-year-old female who presents with urinary tract infection and bacteremia. Urinary tract infection bacteremia, Urine Culture on 01/26 grew E Coli-sensitive to many antibiotics Blood culture positive for Gm Negative organism-identification pending Started on IV Cefepime Will change after Blood culture report Clinically better US-No hydronephrosis Hyponatremia and hypokalemia, possibly from dehydration. We will replace the potassium and Mag Monitor History of diabetes. We will hold home medication of glimepiride and metformin; Place her on Lantus and insulin sliding scale. Follow the blood sugars while in the hospital. History of hypertension. Continue amlodipine, Toprol-XL, hydralazine, valsartan. We will monitor the blood pressure. Gastroesophageal reflux disease, continue PPI. Osteoarthritis on Meloxicam which we will continue. History of depression. Continue Effexor XR. Deep venous thrombosis prophylaxis, Lovenox. Code Status-Full DISPOSITION Likely discharge in a day or two Vital Signs: Date Time Temp Pulse Resp B/P (MAP) Pulse Ox O2 Delivery O2 Flow Rate FiO2 01/28/17 08:23 Room Air 01/28/17 06:56 36.9 77 18 129/78 (95) 95 Room Air 01/27/17 23:09 37.8 94 20 156/82 (106) 95 Room Air 01/27/17 23:00 Room Air 01/27/17 19:00 Room Air 01/27/17 18:05 37.3 83 22 141/72 95 Room Air 01/27/17 17:09 37.8 83 18 141/72 96 Room Air 01/27/17 15:43 37.2 79 18 136/72 96 Room Air 01/27/17 14:19 78 143/76 96 01/27/17 13:47 77 Lab Results: Results Past 24 Hours Test 01/27/17 13:13 01/27/17 13:25 01/27/17 13:32 01/27/17 15:00 Range/Units Influenza Type A (RT-PCR) Neg for Influ A NEG Influenza Type A Antigen Neg for Influ A NEG Influenza Type B Antigen Neg for Influ B NEG Influenza Type B (RT-PCR) Neg for Influ B NEG White Blood Count 12.90 4.8-10.8 K/uL Red Blood Count 4.04 4.2-5.4 M/uL Hemoglobin 12.5 12.0-16.0 g/dL Hematocrit 36.2 37-47 % Mean Corpuscular Volume 89.6 80-100 fL Mean Corpuscular Hemoglobin 30.9 25-34 pg Mean Corpuscular Hemoglobin Concent 34.5 32-36 g/dl Platelet Count 160 130-400 K/uL Mean Platelet Volume 9.6 7.4-10.4 fL Neutrophils (%) (Auto) 84.7 % Lymphocytes (%) (Auto) 7.5 % Monocytes (%) (Auto) 7.4 % Eosinophils (%) (Auto) 0.0 % Basophils (%) (Auto) 0.2 % Neutrophils # (Auto) 10.92 1.4-6.5 K/uL Lymphocytes # (Auto) 0.97 1.2-3.4 K/uL Monocytes # (Auto) 0.96 0.11-0.59 K/uL Eosinophils # (Auto) 0.00 0-0.5 K/uL Basophils # (Auto) 0.02 0-0.2 K/uL RDW Standard Deviation 40.0 36.4-46.3 fL RDW Coefficient of Variation 12.2 11.5-14.5 % Immature Granulocyte % (Auto) 0.2 % Immature Granulocyte # (Auto) 0.03 0.00-0.02 K/uL Prothrombin Time 11.3 9.0-12.0 SECONDS Prothromb Time International Ratio 1.1 0.9-1.1 Activated Partial Thromboplast Time 27.5 21.0-31.0 SECONDS Partial Thromboplastin Ratio 1.1 Sodium Level 129 136-145 mmol/L Potassium Level 3.2 3.5-5.1 mmol/L Chloride Level 96 98-107 mmol/L Carbon Dioxide Level 24 21-32 mmol/L Anion Gap 9.0 3-11 mmol/L Blood Urea Nitrogen 15 7-18 mg/dl Creatinine 0.82 0.60-1.20 mg/dl Est Creatinine Clear Calc Drug Dose 72.2 ml/min Estimated GFR () 85.2 Estimated GFR (Non- 73.5 BUN/Creatinine Ratio 18.1 10-20 Random Glucose 260 70-99 mg/dl Calcium Level 7.7 8.5-10.1 mg/dl Total Bilirubin 1.0 0.2-1 mg/dl Aspartate Amino Transf (AST/SGOT) 16 15-37 U/L Alanine Aminotransferase (ALT/SGPT) 20 12-78 U/L Alkaline Phosphatase 77 45-117 U/L Total Creatine Kinase 103 26-192 U/L Creatine Kinase MB 1.8 0.5-3.6 ng/ml Creatine Kinase MB Ratio 1.7 0-3.0 Troponin I < 0.015 0-0.045 ng/ml Total Protein 6.6 6.4-8.2 gm/dl Albumin 2.7 3.4-5.0 gm/dl Globulin 3.9 2.5-4.0 gm/dl Albumin/Globulin Ratio 0.7 0.9-2 Bedside Lactic Acid Venous 1.78 0.90-1.70 mmol/L Urine Color YELLOW Urine Appearance CLOUDY CLEAR Urine pH 6.5 4.5-7.5 Urine Specific Monitor 1.010 1.000-1.030 Urine Protein TRACE NEG Urine Glucose (UA) TRACE NEG Urine Ketones TRACE NEG Urine Occult Blood NEG NEG Urine Nitrite NEG NEG Urine Bilirubin NEG NEG Urine Urobilinogen NEG NEG Urine Leukocyte Esterase SMALL NEG Urine WBC (Auto) 10-30 0-5 /hpf Urine RBC (Auto) 0-4 0-4 /hpf Urine Hyaline Casts (Auto) 0 0-5 /lpf Urine Epithelial Cells (Auto) 10-20 0-5 /lpf Urine Bacteria (Auto) NEG NEG Test 01/27/17 17:39 01/27/17 19:50 01/28/17 06:48 01/28/17 07:21 Range/Units Bedside Glucose 207 215 181 70-90 mg/dl White Blood Count 9.26 4.8-10.8 K/uL Red Blood Count 3.81 4.2-5.4 M/uL Hemoglobin 11.6 12.0-16.0 g/dL Hematocrit 34.0 37-47 % Mean Corpuscular Volume 89.2 80-100 fL Mean Corpuscular Hemoglobin 30.4 25-34 pg Mean Corpuscular Hemoglobin Concent 34.1 32-36 g/dl Platelet Count 157 130-400 K/uL Mean Platelet Volume 9.2 7.4-10.4 fL Neutrophils (%) (Auto) 79.5 % Lymphocytes (%) (Auto) 6.9 % Monocytes (%) (Auto) 12.4 % Eosinophils (%) (Auto) 0.9 % Basophils (%) (Auto) 0.1 % Neutrophils # (Auto) 7.36 1.4-6.5 K/uL Lymphocytes # (Auto) 0.64 1.2-3.4 K/uL Monocytes # (Auto) 1.15 0.11-0.59 K/uL Eosinophils # (Auto) 0.08 0-0.5 K/uL Basophils # (Auto) 0.01 0-0.2 K/uL RDW Standard Deviation 40.0 36.4-46.3 fL RDW Coefficient of Variation 12.4 11.5-14.5 % Immature Granulocyte % (Auto) 0.2 % Immature Granulocyte # (Auto) 0.02 0.00-0.02 K/uL Sodium Level 134 136-145 mmol/L Potassium Level 3.3 3.5-5.1 mmol/L Chloride Level 103 98-107 mmol/L Carbon Dioxide Level 24 21-32 mmol/L Anion Gap 7.0 3-11 mmol/L Blood Urea Nitrogen 12 7-18 mg/dl Creatinine 0.65 0.60-1.20 mg/dl Est Creatinine Clear Calc Drug Dose 91.1 ml/min Estimated GFR () 105.7 Estimated GFR (Non- 91.2 BUN/Creatinine Ratio 18.4 10-20 Random Glucose 186 70-99 mg/dl Calcium Level 7.5 8.5-10.1 mg/dl Magnesium Level 1.6 1.8-2.4 mg/dl Test 01/28/17 11:19 Range/Units Bedside Glucose 165 70-90 mg/dl Microbiology Results 01/27/17 Blood Culture, Received Pending 01/27/17 Blood Culture, Received Pending 01/27/17 Urine Culture, Received Pending
[2017-01-28 15:51] VITALS: BP 141/78; PULSE 75; TEMP 37.1; O2SAT 95
[2017-01-28] MEDS: AMLODIPINE BESYLATE 5 MG TAB PO SCH (15:59)
[2017-01-28 20:00] VITALS: O2SAT 95
[2017-01-28] MEDS: ATORVASTATIN 40 MG TAB PO SCH (20:24)
[2017-01-28] MEDS: ENOXAPARIN 40 MG/0.4 ML SYR SQ SCH ×2 (20:25→20:26)
[2017-01-28 23:33] VITALS: BP 156/85; PULSE 75; TEMP 37.7; O2SAT 95
[2017-01-29] MEDS: SODIUM CHLORIDE 0.9% 1000ML 1,000 ML IV SCH ×2 (00:40→09:25)
[2017-01-29] MEDS: CEFEPIME IV 2,000 MG in SYRINGE 7.5 ML IV SCH (05:46)
[2017-01-29 06:44] LABS: BASO % 0.1 %; BASO ABS # 0.01 K/uL (0-0.2); COMPLETE YES; EOS % 2.5 %; HEMATOCRIT 34.7 % (37-47); IG% 0.1 %; LYMPH % 14.2 %; LYMPH ABS # 0.98 K/uL (1.2-3.4); MEAN CELL VOLUME 89.4 fL (80-100); MEAN CORPUSCULAR HEMOGLOBIN 30.4 pg (25-34); MEAN PLATELET VOLUME 9.4 fL (7.4-10.4); MONO % 11.8 %; NEUT % 71.3 %; PLATELET COUNT 193 K/uL (130-400); RED BLOOD COUNT 3.88 M/uL (4.2-5.4); WHITE BLOOD COUNT 6.89 K/uL (4.8-10.8)
[2017-01-29 06:53] VITALS: BP 146/78; PULSE 79; TEMP 36.9; O2SAT 97
[2017-01-29 07:19] LABS: BUN/CREATININE RATIO 16.9 (10-20); CALCIUM 7.8 mg/dl (8.5-10.1); CREATININE 0.6 mg/dl (0.60-1.20); MAGNESIUM 1.8 mg/dl (1.8-2.4); POTASSIUM 3.7 mmol/L (3.5-5.1)
[2017-01-29] MEDS: HydrALAZINE 10 MG TAB PO SCH ×3 (08:19→20:36)
[2017-01-29] MEDS: VALSARTAN 80 MG TAB PO SCH (08:19)
[2017-01-29] MEDS: ASPIRIN 81 MG ECTAB PO SCH (08:20)
[2017-01-29] MEDS: VENLAFAXINE HCL XR 37.5 MG CAPXR PO SCH (08:20)
[2017-01-29] MEDS: MULTIVITAMIN TAB PO SCH (08:20)
[2017-01-29] MEDS: METOPROLOL SUCC 50MG EXT REL TAB PO SCH (08:20)
[2017-01-29] MEDS: PANTOprazole SOD 40 MG TAB PO SCH ×2 (08:20→20:36)
[2017-01-29] MEDS: MELOXICAM 7.5 MG TAB PO SCH ×2 (08:20→20:37)
[2017-01-29] MEDS: ACETAMINOPHEN 325 MG TAB PO PRN (08:21)
[2017-01-29] MEDS: INSULIN ASPART 100 UNITS/ML 3 ML PEN SC SCH ×4 (08:27→20:47)
[2017-01-29] MEDS: INSULIN GLARGINE SOLOSTAR 100 UNITS/ML 3 ML PEN SC SCH ×2 (08:38→20:47)
[2017-01-29] MEDS ORDERED: KETOROLAC TROMETHAMINE 15 MG/ML VIAL IV PRN (09:45)
[2017-01-29] MEDS: CEFTRIAXONE SOD INJ 2,000 MG in DEXTROSE 5% 50ML 50 ML IV SCH (09:59)
[2017-01-29] MEDS: ASCORBIC ACID 500 MG TAB PO SCH (09:59)
[2017-01-29] MEDS ORDERED: KETOROLAC TROMETHAMINE 15 MG/ML VIAL IV ONE (10:00)
[2017-01-29 14:09] VITALS: BP 138/81; PULSE 70
--- NOTE | 2017-01-29 15:35 | Progress Note ---
Internal Med Progress Note Date of Service: Jan 29, 2017. Provider Documentation: SUBJECTIVE: The patient was seen and examined Has had diarrhea following antibiotic given before admission Bowel has not moved since admission Body aches are better Denies any other symptoms 01/29 Generally very weak and lethargic today having frequency of urination Does not feel that she can go home today OBJECTIVE: Vital Signs-as noted below Exam: General-no distress at rest Eyes-normal ENT-normal Neck-supple Lungs-clear to auscultate bilaterally Heart-Regular,no murmur Abdomen-Benign no masses,bowel sound present No tenderness in Renal angles Extremities-No edema Neuro-AAOx3 Lab data as noted below. ASSESSMENT & PLAN: This is a 66-year-old female who presents with urinary tract infection and bacteremia. Urinary tract infection bacteremia, Urine Culture on 01/26 grew E Coli-sensitive to many antibiotics Blood culture positive for Gm Negative organism-identification pending Started on IV Cefepime Urine and Blood Culture-E Coli -sensitive to many antibiotic Clinically better US-No hydronephrosis D/C IVF ,Increase ambulation Antibiotic changed to IV Ceftriaxone Likely to be discharged tomorrow on Oral Keflex generalized Weakness Responded well to IV Toradol X1 Increase ambulation Hyponatremia and hypokalemia, possibly from dehydration. We will replace the potassium and Mag Monitor-normalized History of diabetes. We will hold home medication of glimepiride and metformin; Place her on Lantus and insulin sliding scale. Follow the blood sugars while in the hospital. History of hypertension. Continue amlodipine, Toprol-XL, hydralazine, valsartan. We will monitor the blood pressure. Gastroesophageal reflux disease, continue PPI. Osteoarthritis on Meloxicam which we will continue. History of depression. Continue Effexor XR. Deep venous thrombosis prophylaxis, Lovenox. Code Status-Full DISPOSITION Likely discharge tomorrow Vital Signs: Date Time Temp Pulse Resp B/P (MAP) Pulse Ox O2 Delivery O2 Flow Rate FiO2 01/29/17 14:09 70 138/81 (100) 01/29/17 10:14 Room Air 01/29/17 06:53 36.9 79 18 146/78 (100) 97 Room Air 01/28/17 23:33 37.7 75 18 156/85 (108) 95 Room Air 01/28/17 20:00 95 Room Air 01/28/17 16:00 Room Air 01/28/17 15:51 37.1 75 18 141/78 (99) 95 Lab Results: Results Past 24 Hours Test 01/28/17 16:27 01/28/17 20:04 01/29/17 06:11 01/29/17 07:19 Range/Units Bedside Glucose 127 153 150 70-90 mg/dl White Blood Count 6.89 4.8-10.8 K/uL Red Blood Count 3.88 4.2-5.4 M/uL Hemoglobin 11.8 12.0-16.0 g/dL Hematocrit 34.7 37-47 % Mean Corpuscular Volume 89.4 80-100 fL Mean Corpuscular Hemoglobin 30.4 25-34 pg Mean Corpuscular Hemoglobin Concent 34.0 32-36 g/dl Platelet Count 193 130-400 K/uL Mean Platelet Volume 9.4 7.4-10.4 fL Neutrophils (%) (Auto) 71.3 % Lymphocytes (%) (Auto) 14.2 % Monocytes (%) (Auto) 11.8 % Eosinophils (%) (Auto) 2.5 % Basophils (%) (Auto) 0.1 % Neutrophils # (Auto) 4.91 1.4-6.5 K/uL Lymphocytes # (Auto) 0.98 1.2-3.4 K/uL Monocytes # (Auto) 0.81 0.11-0.59 K/uL Eosinophils # (Auto) 0.17 0-0.5 K/uL Basophils # (Auto) 0.01 0-0.2 K/uL RDW Standard Deviation 40.9 36.4-46.3 fL RDW Coefficient of Variation 12.6 11.5-14.5 % Immature Granulocyte % (Auto) 0.1 % Immature Granulocyte # (Auto) 0.01 0.00-0.02 K/uL Sodium Level 134 136-145 mmol/L Potassium Level 3.7 3.5-5.1 mmol/L Chloride Level 105 98-107 mmol/L Carbon Dioxide Level 23 21-32 mmol/L Anion Gap 6.0 3-11 mmol/L Blood Urea Nitrogen 10 7-18 mg/dl Creatinine 0.60 0.60-1.20 mg/dl Est Creatinine Clear Calc Drug Dose 98.7 ml/min Estimated GFR () 108.5 Estimated GFR (Non- 93.7 BUN/Creatinine Ratio 16.9 10-20 Random Glucose 166 70-99 mg/dl Calcium Level 7.8 8.5-10.1 mg/dl Magnesium Level 1.8 1.8-2.4 mg/dl Test 01/29/17 11:05 Range/Units Bedside Glucose 185 70-90 mg/dl
[2017-01-29 15:39] VITALS: BP 157/83; PULSE 60; TEMP 36.5; O2SAT 95
[2017-01-29 15:47] VITALS: O2SAT 95
[2017-01-29] MEDS: AMLODIPINE BESYLATE 5 MG TAB PO SCH (16:11)
[2017-01-29] MEDS: ATORVASTATIN 40 MG TAB PO SCH (20:36)
[2017-01-29] MEDS: ENOXAPARIN 40 MG/0.4 ML SYR SQ SCH (20:42)
[2017-01-30] VITALS: O2SAT 95
[2017-01-30 00:07] VITALS: BP 168/89; PULSE 73; TEMP 37; O2SAT 96
[2017-01-30 06:48] LABS: BASO % 0.5 %; BASO ABS # 0.03 K/uL (0-0.2); COMPLETE YES; EOS % 3.5 %; HEMATOCRIT 33.7 % (37-47); IG% 0.3 %; LYMPH % 17.1 %; LYMPH ABS # 1.07 K/uL (1.2-3.4); MEAN CELL VOLUME 88.9 fL (80-100); MEAN CORPUSCULAR HEMOGLOBIN 30.6 pg (25-34); MEAN CORPUSCULAR HGB CONC 34.4 g/dl (32-36); MEAN PLATELET VOLUME 8.8 fL (7.4-10.4); MONO % 9.8 %; NEUT % 68.8 %; PLATELET COUNT 193 K/uL (130-400); RED BLOOD COUNT 3.79 M/uL (4.2-5.4); WHITE BLOOD COUNT 6.25 K/uL (4.8-10.8)
[2017-01-30 07:26] VITALS: BP 152/79; PULSE 62; TEMP 36.5; O2SAT 96
[2017-01-30 07:26] LABS: BUN/CREATININE RATIO 18.3 (10-20); CALCIUM 8.2 mg/dl (8.5-10.1); CREATININE 0.55 mg/dl (0.60-1.20); MAGNESIUM 1.6 mg/dl (1.8-2.4); POTASSIUM 3.4 mmol/L (3.5-5.1)
[2017-01-30] MEDS: ASPIRIN 81 MG ECTAB PO SCH (08:36)
[2017-01-30] MEDS: VENLAFAXINE HCL XR 37.5 MG CAPXR PO SCH (08:36)
[2017-01-30] MEDS: VALSARTAN 80 MG TAB PO SCH (08:36)
[2017-01-30] MEDS: PANTOprazole SOD 40 MG TAB PO SCH (08:36)
[2017-01-30] MEDS: MULTIVITAMIN TAB PO SCH (08:36)
[2017-01-30] MEDS: HydrALAZINE 10 MG TAB PO SCH ×2 (08:36→13:19)
[2017-01-30] MEDS: MELOXICAM 7.5 MG TAB PO SCH (08:36)
[2017-01-30] MEDS: METOPROLOL SUCC 50MG EXT REL TAB PO SCH (08:37)
[2017-01-30] MEDS: ASCORBIC ACID 500 MG TAB PO SCH (08:37)
[2017-01-30] MEDS: INSULIN ASPART 100 UNITS/ML 3 ML PEN SC SCH ×2 (08:42→11:59)
[2017-01-30] MEDS: INSULIN GLARGINE SOLOSTAR 100 UNITS/ML 3 ML PEN SC SCH (08:43)
[2017-01-30] MEDS: CEFTRIAXONE SOD INJ 2,000 MG in DEXTROSE 5% 50ML 50 ML IV SCH (10:24)
[2017-01-30] MEDS ORDERED: MAGNESIUM SULFATE 1GM / D5W 1 GM in PREMIXED IN D5W 100 ML IV STA (11:09)
[2017-01-30] MEDS ORDERED: POTASSIUM CHLORIDE 10 MEQ TABCR PO ONE (11:15)
--- NOTE | 2017-01-30 11:48 | Progress Note ---
Internal Med Progress Note Date of Service: Jan 30, 2017. Provider Documentation: SUBJECTIVE: Seen and examined at bedside Feels much better today Denies chest pain, SOB, dizziness, Urinary symptoms Feels she is ready to get discharged OBJECTIVE: Vital Signs-as noted below Physical Exam: General Appearance:Moderately built and nourished, no apparent distress Head: normocephalic, Atraumatic Eyes: normal inspection, EOMI, PERRL Neck: supple, Trachea midline Respiratory/Chest: Normal breath sounds, CTA Cardiovascular: S1, S2, No murmur Abdomen/GI:Soft, Non tender, Bowel sounds present Extremities/Musculoskelatal:normal inspection, Trace edema Neurologic/Psych:AAOX3, grossly no focal neurological deficits Skin: normal color, warm Lab data as noted below. ASSESSMENT & PLAN: Patient is a 66 yr female who presents with urinary tract infection and bacteremia. Urinary tract infection/Bacteremia: Urine Culture on 01/26 grew E Coli-sensitive to many antibiotics Repeat Blood culture: negative S/P IV Cefepime>>> IV Ceftriaxone Renal USD: No hydronephrosis Plan to discharge on Oral Keflex to complete 2 week course generalized Weakness Responded well to IV Toradol X1 Resolved Hyponatremia/Hypomagnesemia and hypokalemia, possibly from dehydration. replace electrolytes History of diabetes. We will hold home medication of glimepiride and metformin; Continue Lantus and insulin sliding scale. Follow the blood sugars while in the hospital. History of hypertension. Continue amlodipine, Toprol-XL, hydralazine, valsartan. monitor Gastroesophageal reflux disease continue PPI. Osteoarthritis: Meloxicam PRN Depression. Continue Effexor XR. DVT Px: Lovenox SQ Code Status: Full Code DISPOSITION Plan to discharge home today Follow up with Sussy Gonzalez PA-C on 02/02/17 at 2:05pm Complete the antibiotic course as prescribed Vital Signs: Date Time Temp Pulse Resp B/P (MAP) Pulse Ox O2 Delivery O2 Flow Rate FiO2 01/30/17 09:27 Room Air 01/30/17 07:26 36.5 62 20 152/79 (103) 96 Room Air 01/30/17 00:07 37.0 73 18 168/89 (115) 96 Room Air 01/30/17 00:00 95 Room Air 01/29/17 15:47 95 Room Air 01/29/17 15:39 36.5 60 18 157/83 (107) 95 Room Air 01/29/17 14:09 70 138/81 (100) Lab Results: Results Past 24 Hours Test 01/29/17 16:26 01/29/17 20:35 01/30/17 06:33 01/30/17 07:11 Range/Units Bedside Glucose 143 191 186 70-90 mg/dl White Blood Count 6.25 4.8-10.8 K/uL Red Blood Count 3.79 4.2-5.4 M/uL Hemoglobin 11.6 12.0-16.0 g/dL Hematocrit 33.7 37-47 % Mean Corpuscular Volume 88.9 80-100 fL Mean Corpuscular Hemoglobin 30.6 25-34 pg Mean Corpuscular Hemoglobin Concent 34.4 32-36 g/dl Platelet Count 193 130-400 K/uL Mean Platelet Volume 8.8 7.4-10.4 fL Neutrophils (%) (Auto) 68.8 % Lymphocytes (%) (Auto) 17.1 % Monocytes (%) (Auto) 9.8 % Eosinophils (%) (Auto) 3.5 % Basophils (%) (Auto) 0.5 % Neutrophils # (Auto) 4.30 1.4-6.5 K/uL Lymphocytes # (Auto) 1.07 1.2-3.4 K/uL Monocytes # (Auto) 0.61 0.11-0.59 K/uL Eosinophils # (Auto) 0.22 0-0.5 K/uL Basophils # (Auto) 0.03 0-0.2 K/uL RDW Standard Deviation 40.7 36.4-46.3 fL RDW Coefficient of Variation 12.6 11.5-14.5 % Immature Granulocyte % (Auto) 0.3 % Immature Granulocyte # (Auto) 0.02 0.00-0.02 K/uL Sodium Level 137 136-145 mmol/L Potassium Level 3.4 3.5-5.1 mmol/L Chloride Level 104 98-107 mmol/L Carbon Dioxide Level 27 21-32 mmol/L Anion Gap 6.0 3-11 mmol/L Blood Urea Nitrogen 10 7-18 mg/dl Creatinine 0.55 0.60-1.20 mg/dl Est Creatinine Clear Calc Drug Dose 107.7 ml/min Estimated GFR () 111.7 Estimated GFR (Non- 96.4 BUN/Creatinine Ratio 18.3 10-20 Random Glucose 164 70-99 mg/dl Calcium Level 8.2 8.5-10.1 mg/dl Magnesium Level 1.6 1.8-2.4 mg/dl
[2017-01-30] MEDS ORDERED: CEPH500C2 PO (11:51)
--- NOTE | 2017-01-30 11:53 | Discharge Summary ---
Discharge Summary Date of Service Jan 30, 2017. Discharge Summary Admission Date: Jan 27, 2017 at 16:50 Discharge Date: Jan 30, 2017 Discharge Disposition: Home Principal Diagnosis: UTI, Bacteremia Procedures: CXR: No significant change compared to the prior study. No acute process Renal USD: Essentially normal renal ultrasound. No obstruction. Consultations: None Pending Studies/Follow-Up: Follow up with Sussy Gonzalez PA-C on 02/02/17 at 2:05pm Complete the antibiotic course as prescribed Seek immediate medical attention if your symptoms reoccur or worsen Medication Reconciliation New Medications: Cephalexin Monohydrate (Keflex) 500 Mg Cap 500 MG PO BID for 11 Days, #22 CAP Continued Medications: Amlodipine Besylate (Amlodipine Besylate) 5 Mg Tab 5 MG PO DAILY Ascorbic Acid (Vitamin C) 500 Mg Tab 500 MG PO QAM Aspirin (Aspirin Ec) 81 Mg Tab 81 MG PO DAILY Atorvastatin (Atorvastatin Calcium) 40 Mg Tab 40 MG PO QPM Glimepiride (Glimepiride) 2 Mg Tab 2 MG PO DAILY Take with 1st meal today Hydralazine HCl (Hydralazine HCl) 10 Mg Tab 10 MG PO TID Meloxicam (Mobic) 7.5 Mg Tab 7.5 MG PO BID, TAB Metformin HCl (Metformin HCl) 500 Mg Tab 500 MG PO QAM Metformin Hcl (Glucophage) 500 Mg Tab 1000 MG PO QPM, TAB Metoprolol Succinate (Metoprolol Succinate ER) 100 Mg Tabcr 100 MG PO DAILY Multiple Vitamin (Multivitamins) 1 Cap Cap 1 TAB PO QAM Hblyx-[id number] Ethyl Esters ([place]-3) 1 Cap Cap 1 CAP PO QAM, CAP Omeprazole (Prilosec) 20 Mg Cap 20 MG PO BID Valsartan (Valsartan) 320 Mg Tab 320 MG PO DAILY Venlafaxine Hcl (Venlafaxine Extended Rel) 37.5 Mg Cap 37.5 MG PO DAILY Discontinued Medications: Sulfa/Trimethoprim (Bactrim Ds 800MG/160MG) Tab 1 TAB PO BID, #14 TAB Admission Information HPI (per Admitting provider): CHIEF COMPLAINT: Not feeling well and UTI. HISTORY OF PRESENT ILLNESS: This is a 66-year-old female with past medical history significant for diabetes, diabetic polyneuropathy, hypertension, anxiety, obesity, osteoarthrosis, hyperlipidemia, GERD, presents with UTI and bacteremia. The patient was having buring sensations while micturating and frequent urinations for about a week and a week and a half. For the last 3 days, it got worse, had running temperatures and feeling generalized weak and tired and she came to the ER yesterday, thought to have UTI and given a dose of IV Rocephin and discharged on Bactrim as she was feeling better. But today the cultures came back as bacteremia growing gram negative bacilli in the urine and the blood and she was advised to come to the ER. The patient states that she did not fill up her Bactrim tablets and not taking them. She said after she went home, she felt better yesterday after antibiotic received in the ER, but since today morning again she was feeling weak and tired and having lower abdominal pain and she complains of flank pain. Currently resting comfortably, hemodynamically stable, afebrile in the ER today. Has some headaches, no dizziness, no blurred vision, no sore throat, no cough but has some difficulty swallowing from dryness. Denies any chest pain, no shortness of breath, Normal bowel movements. Appetite is okay. No swelling in the legs. Physical Exam (per Admitting): PHYSICAL EXAMINATION: GENERAL: The patient is obese, not in distress. VITAL SIGNS: Temperature 37.2, pulse 79, respiratory rate 18, blood pressure 136/72, oxygen 96% on room air. HEENT: No pallor, no icterus. Pupils equal, round, and reactive to light. NECK: No JVD, no neck masses, no carotid bruits. CARDIOVASCULAR: S1, S2 heard, regular rate and rhythm, no murmur, no gallop. RESPIRATORY SYSTEM: Clear to auscultation bilaterally. No wheezing, no crackles. ABDOMEN: Soft, bowel sounds present. Mild abdominal discomfort mostly in the lower abdomen, mild bilateral CVA tenderness present. No guarding, no rigidity. CENTRAL NERVOUS SYSTEM: Cranial nerves II-XII are grossly intact. Nonfocal. EXTREMITIES: No edema. No erythema. Hospital Course Patient is a 66 yr female who presents with urinary tract infection and bacteremia. Urinary tract infection/Bacteremia: Urine Culture on 01/26 grew E Coli-sensitive to many antibiotics Repeat Blood culture: negative S/P IV Cefepime>>> IV Ceftriaxone Renal USD: No hydronephrosis Plan to discharge on Oral Keflex to complete 2 week course generalized Weakness Responded well to IV Toradol X1 Resolved Hyponatremia/Hypomagnesemia and hypokalemia, possibly from dehydration. replace electrolytes History of diabetes. We will hold home medication of glimepiride and metformin; Continue Lantus and insulin sliding scale. Follow the blood sugars while in the hospital. History of hypertension. Continue amlodipine, Toprol-XL, hydralazine, valsartan. monitor Gastroesophageal reflux disease continue PPI. Osteoarthritis: Meloxicam PRN Depression. Continue Effexor XR. DVT Px: Lovenox SQ Code Status: Full Code DISPOSITION Plan to discharge home today Follow up with Sussy Gonzalez PA-C on 02/02/17 at 2:05pm Complete the antibiotic course as prescribed Total time spent on discharge = 33 minutes This includes examination of the patient, discharge planning, medication reconciliation, and communication with other providers. Discharge Instructions Discharge Instructions Date of Service Jan 30, 2017. Admission Reason for Admission: Bacteremia, Uti Discharge Discharge Diagnosis / Problem: UTI, Bacteremia Discharge Goals Goal(s): Decrease discomfort, Improve function Activity Recommendations Activity Limitations: resume your previous activity Exercise/Sports Limitations: as tolerated . Instructions / Follow-Up Instructions / Follow-Up Follow up with Sussy Gonzalez PA-C on 02/02/17 at 2:05pm Complete the antibiotic course as prescribed Seek immediate medical attention if your symptoms reoccur or worsen Current Hospital Diet Patient's current hospital diet: Diabetes Type 2 Diet, AHA Diet (Heart Healthy) Discharge Diet Recommended Diet: AHA Diet (Heart Healthy), Diabetes Type 2 Diet Pending Studies Studies pending at discharge: no Medical Emergencies . Who to Call and When: Medical Emergencies: If at any time you feel your situation is an emergency, please call 911 immediately. . Non-Emergent Contact Non-Emergency issues call your: Primary Care Provider Call Non-Emergent contact if: you have a fever, your pain is not controlled, your pain is worsening, your pain is unusual for you, your pain is concerning you, you have any medication questions Seek immediate medical attention if your symptoms reoccur or worsen . . "Provider Documentation" section prepared by Lon Everett. . VTE Core Measure Inpt VTE Proph given/why not?: Enoxaparin (Lovenox)SQ <Electronically signed by oLn Everett MD> Signed: 01/30/17 1152 Signed: The status of this report is Signed * If report status is Draft, the document has not been finalized by the responsible provider.
[2017-01-30 12:57] VITALS: BP 152/79; PULSE 62; TEMP 36.5; O2SAT 96
== END 2017-01-30 14:15 | disposition home or self-care (01) | DRG 872 ==
LOC: C.EDB 12:38 → C.MS2W 16:50 → ENRESERV 17:07
PROVIDERS: ADMIT Internal Medicine; ATTEND Internal Medicine
DX: R78.81 Bacteremia (principal); N39.0 Urinary tract infection, site not specified; E87.1 Hypo-osmolality and hyponatremia; B96.20 Unspecified Escherichia coli [E. coli] as the cause of diseases classified elsewhere; E87.6 Hypokalemia; E83.42 Hypomagnesemia; E11.43 Type 2 diabetes mellitus with diabetic autonomic (poly)neuropathy; I10 Essential (primary) hypertension; E78.5 Hyperlipidemia, unspecified; K21.9 Gastro-esophageal reflux disease without esophagitis; F32.9 Major depressive disorder, single episode, unspecified; F41.9 Anxiety disorder, unspecified; M19.90 Unspecified osteoarthritis, unspecified site; E66.9 Obesity, unspecified; Z51.81 Encounter for therapeutic drug level monitoring; Z79.899 Other long term (current) drug therapy; Z79.82 Long term (current) use of aspirin; Z79.84 Long term (current) use of oral hypoglycemic drugs; Z68.39 Body mass index [BMI] 39.0-39.9, adult; Z83.3 Family history of diabetes mellitus; Z82.49 Family history of ischemic heart disease and other diseases of the circulatory system

== ENCOUNTER 2017-09-04 09:52 | Observation (INO) | payer OTHER ==
[2017-09-04] VITALS (8 sets, daily range): BP systolic 131–150; BP diastolic 79–85; PULSE 60–67; TEMP 36–36.7; O2SAT 92–100; Ht 160 cm; Wt 95.4 kg
[~2017-09-04] VITALS: Ht 160 cm; Wt 95.4 kg
[~2017-09-04 09:52] MED LIST changes: -SULF800T23 PO
[2017-09-04] MEDS ORDERED: SODIUM CHLORIDE 0.9% 500ML 500 ML IV STA (10:09)
--- NOTE | 2017-09-04 10:45 | DIAGNOSTIC IMAGING REPORT ---
R FINGER(S) MIN 2 VIEWS ROUTINE CLINICAL HISTORY: Right 2nd digit distal infectio.n COMPARISON: None FINDINGS: Soft tissue swelling of the right second finger is noted. There is no fracture or evidence for osteomyelitis. No radiopaque foreign bodies are identified. Note is made of moderate osteoarthritis within the articulations of the right second digit. IMPRESSION: No fracture or evidence of osteomyelitis within the right second finger. Right second finger soft tissue swelling. Electronically signed by: Balwinder Ocampo M.D. 09/04/2017 10:36 AM Dictated Date/Time: 09/04/2017 10:35 AM
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
[2017-09-04 10:57] LABS: BASO % 0.3 %; BASO ABS # 0.02 K/uL (0-0.2); HEMATOCRIT 40.3 % (37-47); HEMOGLOBIN 13.8 g/dL (12.0-16.0); IG# 0.01 K/uL (0.00-0.02); LYMPH % 23.1 %; LYMPH ABS # 1.56 K/uL (1.2-3.4); MEAN CELL VOLUME 90.2 fL (80-100); MEAN CORPUSCULAR HEMOGLOBIN 30.9 pg (25-34); MEAN CORPUSCULAR HGB CONC 34.2 g/dl (32-36); MEAN PLATELET VOLUME 9.3 fL (7.4-10.4); MONO % 4.9 %; MONO ABS # 0.33 K/uL (0.11-0.59); NEUT % 68.6 %; NEUT ABS # 4.62 K/uL (1.4-6.5); PLATELET COUNT 241 K/uL (130-400); RED CELL DISTRIBUTION WIDTH CV 12.7 % (11.5-14.5); RED CELL DISTRIBUTION WIDTH SD 41.4 fL (36.4-46.3); WHITE BLOOD COUNT 6.74 K/uL (4.8-10.8)
[2017-09-04] MEDS ORDERED: SODIUM CHLORIDE 0.9% IV STA (11:05)
[2017-09-04] MEDS ORDERED: LOSA100T65 PO (11:05)
[2017-09-04] MEDS ORDERED: DAPTOMYCIN IV STA (11:05)
[2017-09-04] MEDS ORDERED: GLIM4TAB2 PO (11:05)
[2017-09-04] MEDS ORDERED: PIPERACILLIN/TAZOBACTAM 4.5 GM/100ML D5W IV STA (11:05)
[2017-09-04] MEDS ORDERED: DTR5 PO (11:05)
[2017-09-04] MEDS ORDERED: METF-384 PO (11:06)
[2017-09-04 11:14] LABS: CALCIUM 8.8 mg/dl (8.5-10.1); CREATININE 0.78 mg/dl (0.60-1.20); POTASSIUM 4.1 mmol/L (3.5-5.1)
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
[2017-09-04] MEDS ORDERED: CEFAZOLIN 2000MG IV PUSH 15 ML IV SCH (12:32)
--- NOTE | 2017-09-04 12:42 | History and Physical ---
History & Physical Date & Time of Service: Sep 04, 2017 at 12:20 Chief Complaint: Infected Finger Primary Care Physician: Jeff Montague M.D. History of Present Illness Source: patient Patient is a 67-year-old white female who Dr. Montanez and I are seeing together today in the ER. We have been asked to see her due to a right index finger infection. The patient states that she has not had any recent injury to the right index finger recently. She apparently had cut herself with a knife and the finger in February of this year and states that she has not had any true sensation that fingertip since that time. She also states that she has had blisters on several fingers in the past due to unknown reasons. Proximally 5 days ago she began noticing that the finger had some redness to it though she was not feeling any pain. She went to her primary care physician who started her on Augmentin. The finger progressively worsened over time and she was referred to an orthopedic surgeon at [facility]. By the physician today and he felt that it needed urgent evaluation and was sent to the emergency room. She is now here to be seen for her index finger infection. She denies any recent chills, fevers, or rigors. She denies nausea or vomiting. Past Medical/Surgical History Medical Problems: (1) Bacteremia (2) Degenerative joint disease (DJD) of hip (3) Infected Right Index Finger (4) Paronychia (5) Pharyngitis (6) Pyelonephritis (7) UTI (urinary tract infection) She also has history of diabetes mellitus type 2 with diabetic polyneuropathy, hypertension, anxiety, obesity, osteoarthritis, hyperlipidemia, GERD Past surgical history: Left knee arthroscopy in the past carpal tunnel surgery, EGD with biopsy, vaginal hysterectomy, cholecystectomy, left and right total hip arthroplasties, total knee arthroplasty Family History Diabetes mellitus Hypertension Social History Smoking Status: Never Smoker Alcohol Use: none Marital Status: Occupational Status: unemployed Immunizations History of Influenza Vaccine: No History of Tetanus Vaccine?: Unknown History of Pneumococcal: Yes History of Hepatitis B Vaccine: Unknown Allergies Coded Allergies: Amitriptyline (Verified Allergy, Severe, throat swells, 09/04/17) Latex1 -Allergic Contact Dermititis (Verified Allergy, Intermediate, "red welts, 09/04/17) Morphine (Verified Allergy, Intermediate, HIVES, 09/04/17) Hydrocodone (Verified Allergy, Mild, "itching", 09/04/17) Tramadol (Verified Allergy, Mild, "itching", 09/04/17) Levofloxacin (Verified Allergy, Unknown, UNKNOWN, 09/04/17) Rofecoxib (Verified Allergy, Unknown, `, 09/04/17) Duloxetine (Verified Adverse Reaction, Intermediate, "severe muscle aches ", 09/04/17) Lisinopril (Verified Adverse Reaction, Mild, "cough", 09/04/17) Nortriptyline (Verified Adverse Reaction, Mild, "was wide awake", 09/04/17) Home Medications Scheduled Amlodipine Besylate (Amlodipine Besylate), 5 MG PO DAILY Ascorbic Acid (Vitamin C), 500 MG PO QAM Aspirin (Aspirin Ec), 81 MG PO DAILY Atorvastatin (Lipitor), 40 MG PO QPM Glimepiride (Glimepiride), 6 MG PO QAM Hydralazine HCl (Hydralazine HCl), 10 MG PO TID Losartan Potassium (Cozaar), 100 MG PO QAM Meloxicam (Mobic), 7.5 MG PO BID Metformin Hcl (Glucophage), 1,000 MG PO BID Metoprolol Succinate (Metoprolol Succinate ER), 100 MG PO DAILY Multiple Vitamin (Multivitamins), 1 TAB PO QAM Trlgr-5-Xlus Ethyl Esters (Somerset-3), 1 CAP PO QAM Omeprazole (Prilosec), 20 MG PO BID Oxybutynin Chloride (Oxybutynin Chloride), 5 MG PO QPM Venlafaxine Hcl (Venlafaxine Extended Rel), 37.5 MG PO DAILY Review of Systems Patient denies any history of recent fevers, chills, night sweats, unexpected weight loss or weight gain. No increased shortness of breath, no increased cough or sputum production. Patient does have a history of pneumonia in the past. Denies asthma, bronchitis, COPD. Denies any history of chest pain, chest pressure, irregular heartbeat, myocardial infarction. Patient states that she does have a history of irritable bowel disease and has had some recent diarrhea that she attributes to this. She states that she has had bleeding from the rectum of which she also attributes to her bowel disease. No unusual nausea, vomiting. Positive history of GERD. Denies history of hematemesis. Denies history of hepatitis. Patient has history of urinary tract infection in the past and was admitted for UTI with bacteremia in January 2017. Hematuria, pyuria, dysuria, or renal calculi. Denies history of CVA, TIA, seizure disorders, migraine headache. Physical Exam Vital Signs Date Time Temp Pulse Resp B/P (MAP) Pulse Ox O2 Delivery O2 Flow Rate FiO2 09/04/17 11:13 56 16 181/89 96 Room Air 09/04/17 09:56 36.7 67 18 179/78 96 Room Air General: Patient is well-developed well-nourished white female, no acute distress, pleasant cooperative, alert and oriented 3. Skin: Warm and dry, turgor is good HEENT: Head is normocephalic atraumatic, there is no scleral icterus or injection. PERRLA. EOMI. Nasal airways patent, and oral mucosa is pink and moist Neck: Supple without adenopathy; I cannot appreciate any bruits at this time. Heart: Regular rate and rhythm Lungs: Clear to auscultation Abdomen: Obese, nontender on palpation, bowel sounds are present 4 Genitalia rectal: Not performed Extremities: Right index finger: Her nail plate is definitely loose, and there is a small to moderate amount of serous drainage coming from the area. There is a line of erythema proximally, but the distal fingertip is cool, white, and has an area of darkness more towards the ulnar side of the digit. She has no sensation in this area. Proximally in the finger pulp, the tissue looks normal and healthy without any significant erythema, but again she has no sensation in this area. No significant erythema or swelling at the DIP or PIP joints. She has normal painless motion at the DIP joint. No tenderness to palpation along the flexor tendon sheath. Hand is warm and well-perfused. Sensation is intact to light touch or proximally in the finger out to the level of the middle phalanx. She denies any pain into the right hand or wrist, elbow or shoulder. Left upper extremity and bilateral lower extremities are essentially within normal limits. Distal pulses are equal bilaterally. Loss of sensation noted above in the affected finger. Patient with history of polyneuropathy due to her diabetes. Otherwise, no gross or motor sensory loss seen at this time. Diagnostics Laboratory Results Results Past 24 Hours Test 09/04/17 10:35 Range/Units White Blood Count 6.74 4.8-10.8 K/uL Red Blood Count 4.47 4.2-5.4 M/uL Hemoglobin 13.8 12.0-16.0 g/dL Hematocrit 40.3 37-47 % Mean Corpuscular Volume 90.2 80-100 fL Mean Corpuscular Hemoglobin 30.9 25-34 pg Mean Corpuscular Hemoglobin Concent 34.2 32-36 g/dl Platelet Count 241 130-400 K/uL Mean Platelet Volume 9.3 7.4-10.4 fL Neutrophils (%) (Auto) 68.6 % Lymphocytes (%) (Auto) 23.1 % Monocytes (%) (Auto) 4.9 % Eosinophils (%) (Auto) 3.0 % Basophils (%) (Auto) 0.3 % Neutrophils # (Auto) 4.62 1.4-6.5 K/uL Lymphocytes # (Auto) 1.56 1.2-3.4 K/uL Monocytes # (Auto) 0.33 0.11-0.59 K/uL Eosinophils # (Auto) 0.20 0-0.5 K/uL Basophils # (Auto) 0.02 0-0.2 K/uL RDW Standard Deviation 41.4 36.4-46.3 fL RDW Coefficient of Variation 12.7 11.5-14.5 % Immature Granulocyte % (Auto) 0.1 % Immature Granulocyte # (Auto) 0.01 0.00-0.02 K/uL Sodium Level 138 136-145 mmol/L Potassium Level 4.1 3.5-5.1 mmol/L Chloride Level 105 98-107 mmol/L Carbon Dioxide Level 25 21-32 mmol/L Anion Gap 8.0 3-11 mmol/L Blood Urea Nitrogen 14 7-18 mg/dl Creatinine 0.78 0.60-1.20 mg/dl Est Creatinine Clear Calc Drug Dose 74.8 ml/min Estimated GFR () 89.9 Estimated GFR (Non- 77.6 BUN/Creatinine Ratio 17.6 10-20 Random Glucose 156 70-99 mg/dl Calcium Level 8.8 8.5-10.1 mg/dl Microbiology Results 09/04/17 Blood Culture, Received Pending 09/04/17 Blood Culture, Received Pending Impression Assessment and Plan (1) Paronychia Infection right index finger with possible necrosis noted. Plan: Patient will be taken to the operating room today by Dr. Montanez for irrigation and debridement versus possible fingertip amputation. Attending Addendum: I have seen and examined the patient, and agree with NILAM Najera's assessment and plan. I am covering orthopedic surgery call for Dr. Hill, who is unavailable. Shaq Montanez MD Resuscitation Status VTE Prophylaxis Will order VTE Prophylaxis: Yes
[2017-09-04] MEDS ORDERED: FENTANYL CITRATE INJ 50 MCG/1 ML 2 ML VIAL IV PRN (13:15)
[2017-09-04] MEDS ORDERED: ONDANSETRON INJ 2 MG/ML 2 ML VIAL IV PRN (13:15)
[2017-09-04] MEDS ORDERED: LABETALOL HCL IV 5 MG/ML 20ML IV PRN (13:15)
[2017-09-04] MEDS ORDERED: ATROPINE SULFATE 0.1 MG/ML 5ML SYR IV PRN (13:15)
[2017-09-04] MEDS ORDERED: MIDAZOLAM HCL 1 MG/ML 2ML VIAL ONE (13:15)
[2017-09-04] MEDS ORDERED: FENTANYL CITRATE INJ 50 MCG/1 ML 2 ML VIAL ONE (13:16)
[2017-09-04] MEDS ORDERED: PROPOFOL IV EMULSION 10 MG/ML 20 ML VIAL ONE ×2 (13:19→14:09)
[2017-09-04] MEDS ORDERED: LIDOCAINE HCL 2% 2 ML VIAL (20MG/ML) ONE (13:19)
[2017-09-04] MEDS: SODIUM CHLORIDE 0.9% 1000ML 1,000 ML IV SCH (13:43)
[2017-09-04] MEDS ORDERED: BUPIVACAINE 0.5 % 5 MG/1 ML PF 10ML VIAL ONE (13:48)
[2017-09-04] MEDS ORDERED: LIDOCAINE HCL 1% 20 ML VIAL ONE (13:48)
[2017-09-04] MEDS ORDERED: ROCURONIUM BROMIDE 10 MG/ML 5 ML VIAL ONE (14:09)
[2017-09-04] MEDS ORDERED: ONDANSETRON INJ 2 MG/ML 2 ML VIAL ONE (14:09)
[2017-09-04] MEDS ORDERED: NEOSTIGMINE METHYLSULFATE 5 MG/5 ML SYR ONE (14:26)
[2017-09-04] MEDS ORDERED: GLYCOPYRROLATE INJ 0.2 MG/ML VIAL ONE (14:26)
--- NOTE | 2017-09-04 14:44 | [facility] Post Operative Brief Note ---
Immediate Operative Summary Operative Date Sep 04, 2017. Pre-Operative Diagnosis Infection right index finger Post-Operative Diagnosis Infection right index finger, epidermolysis Procedure(s) Performed Right Index Finger Incision and Drainage Surgeon Dr. Shaq Montanez Certified Hyperbaric Technologist Surgeon(s) None Estimated Blood Loss None Findings See Below Epidermolysis, necrosis of sterile matrix of nailbed Fluids (cc crystalloids) 200cc Specimens Micro #1: Right index finger nail bed-gram stain, culture and sensitivity, anaerobic, aerobic Drains None Anesthesia Type General Complication(s) none
--- NOTE | 2017-09-04 15:19 | Anesthesiology Progress Note ---
Anesthesia Post Op Note Date & Time Sep 04, 2017 at 15:19 Vital Signs Pain Intensity: 0 Vital Signs Past 12 Hours Date Time Temp Pulse Resp B/P (MAP) Pulse Ox O2 Delivery O2 Flow Rate FiO2 09/04/17 15:15 62 16 152/95 95 Nasal Cannula 2 09/04/17 15:05 74 16 162/89 100 Room Air 09/04/17 14:55 78 16 162/86 100 Oxymask 3 09/04/17 14:45 36.6 86 16 161/86 97 Oxymask 5 09/04/17 13:00 62 16 172/76 96 Room Air 09/04/17 11:13 56 16 181/89 96 Room Air 09/04/17 09:56 36.7 67 18 179/78 96 Room Air Notes Mental Status: alert / awake / arousable, participated in evaluation Pt Amnestic to Procedure: Yes Nausea / Vomiting: adequately controlled Pain: adequately controlled Airway Patency, RR, SpO2: stable & adequate BP & HR: stable & adequate Hydration State: stable & adequate Anesthetic Complications: no major complications apparent
--- NOTE | 2017-09-04 15:32 | [facility] Operative Report ---
Operative Report Operative Date Sep 04, 2017. Pre-Operative Diagnosis Infection right index finger Post-Operative Diagnosis Epidermolysis of right index finger tip and nailbed Procedure(s) Performed Irrigation and debridement right index fingertip. Surgeon Dr. Shaq Montanez Supervisor Air Conditioning Installer Surgeon(s) None Estimated Blood Loss none per surgeon Findings Epidermolysis of fingertip; necrosis of sterile matrix of nailbed. Fluids 200cc Specimens Micro #1: Right index finger nail bed-gram stain, culture and sensitivity, anaerobic, aerobic Drains None Anesthesia General Complication(s) None Disposition Recovery Room / PACU Indications Ms. Reyes is a 67 year old [id number] female who has had a problem with her right index fingertip over the past 5 days. At first, when I interviewed the patient in the emergency room, she denied any trauma to the finger. However, after the procedure when I described my findings to the family , they revealed that she may have had a meat and poultry inspector fall on her fingertip the same day. The son tells me that the finger was very purple after that incident , and had blood seeping from the corner of her nailbed. She has complete loss of sensation to her right index fingertip due to a previous laceration injury with a knife back in February, and therefore may not have felt that the meat and poultry inspector actually crushed her fingertip. She saw her primary care physician the following day, who started her on Augmentin, but she had continued worsening of the problem over the weekend. She presented to the emergency department today, where she had drainage from her finger and the tip looked necrotic. I recommended an irrigation and debridement surgery, with possible amputation of her fingertip due to the appearance of infection with necrosis. Risks, benefits , and alternatives of surgery were explained in detail. She understood all this and wished to proceed. Description of Procedure Ms. Reyes was identified in the Surgical Admissions area of the [facility]. Operative digit was marked. She was then brought back to the operating room and placed supine on the operating room table. General anesthesia was induced without complication. Two grams of Ancef were infused intravenously for antibiotic prophylaxis. Tourniquet was placed on the right upper forearm. Right forearm was then prepped and draped in a standard sterile fashion using Chlorhexidine prep. Forearm was then exsanguinated with an Esmarch, and the tourniquet was inflated. I first again carefully inspected the fingertip. Again, the nail plate was quite loose and elevated off of the finger. There was serous drainage coming from the nailbed area. The fingertip had the appearance of necrosis distally, with intact healthy tissue on the more proximal aspect of the volar pulp. I first removed the nail plate with a Fraser elevator. Immediately evident was a layer of sloughing, necrotic tissue. This was easily debrided away with a Fraser elevator; it appears that this was the sterile matrix component of the nailbed. The germinal matrix more proximally looked intact and healthy. Distally past the nail plate area, there was significant epidermolysis. The underlying dermis looked healthy and intact. I trimmed away the necrotic epidermis with tenotomy scissors. No purulence or fluid collection was found anywhere around the fingertip or in the eponychial fold. The underlying dermis was quite erythematous, but intact. At this point, I felt that no further debridement or amputation was necessary. I copiously irrigated the fingertip and eponychial fold with 3000 cc of sterile saline by gravity irrigation. Tourniquet was let down after 16 minutes of tourniquet time. Sterile dressings were then applied with Xeroform, sterile Cling wrap, followed by Coban. The drapes were removed, the patient was awakened from general anesthesia, transferred over to the stretcher, and taken to the Post Anesthesia Care Unit in stable condition. There were no immediate complications to the procedure. I was present and scrubbed for the entire procedure. Of note, after discussing my findings with the family and their providing the additional history that she may have had a large object fall on her finger, my impression is that this may have been a fingertip crush injury that caused a subungual hematoma that then caused pressure necrosis of the sterile matrix of her nailbed. I attest to the content of the Intraoperative Record and any orders documented therein. Any exceptions are noted below. I am covering Orthopedic Surgery call for Dr. Hill, who is unavailable. Shaq Montanez MD
[2017-09-04] MEDS ORDERED: IV FLUIDS COMPLETED PRN (16:15)
[2017-09-04] MEDS ORDERED: DEXTROSE 50% 50 ML SYR IV PRN (17:00)
[2017-09-04] MEDS ORDERED: IBUPROFEN 600 MG TAB PO PRN (17:00)
[2017-09-04] MEDS ORDERED: ACETAMINOPHEN 500 MG TAB PO PRN (17:00)
[2017-09-04] MEDS ORDERED: GLUCOSE 10 TABS/TUBE PO PRN (17:00)
[2017-09-04] MEDS ORDERED: GLUCOSE 40% GEL 15 GM TUBE PO PRN (17:00)
[2017-09-04] MEDS ORDERED: GLUCAGON FOR INJ 1 MG VIAL SQ PRN (17:00)
[2017-09-04] MEDS ORDERED: CARBOHYDRATES FOR HYPOGLYCEMIA PO PRN (17:00)
--- NOTE | 2017-09-04 17:41 | DIAGNOSTIC IMAGING REPORT ---
CHEST 2 VIEWS ROUTINE CLINICAL HISTORY: PREOP preoperative evaluation COMPARISON STUDY: 01/27/2017 FINDINGS: The bones soft tissues and hemidiaphragms are normal. The cardiomediastinal silhouette is normal. The lungs are clear. The pulmonary vasculature is normal. IMPRESSION: Negative chest. The above report was generated using voice recognition software. It may contain grammatical, syntax or spelling errors. Electronically signed by: Fab Simms M.D. 09/04/2017 5:39 PM Dictated Date/Time: 09/04/2017 5:39 PM
[2017-09-04] MEDS ORDERED: METFORMIN HCL 500 MG TAB PO SCH (17:45)
[2017-09-04] MEDS: CLINDAMYCIN IV 600 MG in DEXTROSE 5% 50ML 50 ML IV SCH (18:54)
[2017-09-04] MEDS: INSULIN ASPART 100 UNITS/ML 3 ML PEN SC SCH ×2 (18:58→20:52)
--- NOTE | 2017-09-04 20:01 | Medical Consult ---
Consultation Date of Consultation: Sep 04, 2017. Attending Physician: Shaq Ayala M.D. Reason for Consultation: Medical management History of Present Illness Pt is 67 y/o F with PMH DM II, neuropathy, dyslipidemia, HTN, anxiety, fibromyalgia seen in post op medical consultation s/p debridement R index finger today by Dr Ayala. There was concern for possible infection vs necrosis of R index finger following reported injury 5 days ago and hx injury 2017. Pt with reported loss sensation to R index finger since injury. Pt received daptomycin and zosyn in ER this morning and had cefazolin pre-op. Pt feeling well post op. Denies any digit pain. Reports chronic "full body" aches from fibromyalgia. Reports BM this morning. hasn't urinated yet since surgery. Denies nausea or vomiting. Denies fever/chills. Past Medical/Surgical History Medical Problems: (1) Anxiety Status: Chronic (2) Degenerative joint disease (DJD) of hip Status: Chronic (3) DM type 2 (diabetes mellitus, type 2) Status: Chronic (4) Dyslipidemia Status: Chronic (5) Fibromyalgia Status: Chronic (6) HTN (hypertension) Status: Chronic (7) Pharyngitis Status: Resolved (8) UTI (urinary tract infection) Status: Resolved Surgical Problems: (1) History of left knee replacement Status: Resolved (2) Hx of bilateral hip replacements Status: Resolved (3) Hx of hysterectomy Status: Resolved Family History Diabetes mellitus Hypertension Social History Smoking Status: Never Smoker Smokeless Tobacco Use: No Alcohol Use: none Drug Use: none Marital Status: Housing Status: lives with family Occupation Status: unemployed Allergies Coded Allergies: Amitriptyline (Verified Allergy, Severe, throat swells, 09/04/17) Latex1 -Allergic Contact Dermititis (Verified Allergy, Intermediate, "red welts, 09/04/17) Morphine (Verified Allergy, Intermediate, HIVES, 09/04/17) Hydrocodone (Verified Allergy, Mild, "itching", 09/04/17) Tramadol (Verified Allergy, Mild, "itching", 09/04/17) Levofloxacin (Verified Allergy, Unknown, UNKNOWN, 09/04/17) Rofecoxib (Verified Allergy, Unknown, `, 09/04/17) Duloxetine (Verified Adverse Reaction, Intermediate, "severe muscle aches ", 09/04/17) Lisinopril (Verified Adverse Reaction, Mild, "cough", 09/04/17) Nortriptyline (Verified Adverse Reaction, Mild, "was wide awake", 09/04/17) Current Inpatient Medications Current Inpatient Medications Medications (Trade) Dose Ordered Sig/Shnata Route Start Time Stop Time Status Last Admin Dose Admin Sodium Chloride 1,000 ml @ 15 mls/hr Q24H IV 09/04/17 12:12 10/04/17 12:11 09/04/17 13:43 15 MLS/HR Cefazolin Sodium 15 ml @ 3.75 mls/ min PREOP IV 09/04/17 12:32 09/04/17 23:59 09/04/17 13:46 3.75 MLS/MIN Ondansetron HCl (Zofran Inj) 4 mg ONE PRN IV 09/04/17 13:15 09/04/17 18:15 Atropine Sulfate (Atropine Sulfate 0.1mg/ml Inj) 0.5 mg Q1M PRN IV 09/04/17 13:15 09/04/17 18:15 Fentanyl Citrate (Fentanyl Inj) 25 mcg Q5M PRN IV 09/04/17 13:15 09/04/17 18:15 Labetalol HCl (Normodyne IV) 5 mg Q5M PRN IV 09/04/17 13:15 09/04/17 18:15 Amlodipine Besylate (Norvasc Tab) 5 mg DAILY PO 09/05/17 09:00 10/05/17 08:59 Ascorbic Acid (Vitamin C Tab) 500 mg QAM PO 09/05/17 09:00 10/05/17 08:59 Aspirin (Ecotrin Tab) 81 mg DAILY PO 09/05/17 09:00 10/05/17 08:59 Atorvastatin Calcium (Lipitor Tab) 40 mg QPM PO 09/04/17 21:00 10/04/17 20:59 Hydralazine HCl (Apresoline Tab) 10 mg TID PO 09/04/17 21:00 10/04/17 20:59 Losartan Potassium (coZAAR TAB) 100 mg QAM PO 09/05/17 09:00 10/05/17 08:59 Oxybutynin Chloride (Ditropan Tab) 5 mg QPM PO 09/04/17 21:00 8/23/18 20:59 Venlafaxine HCl (effeXOR EXTENDED REL CAP) 37.5 mg DAILY PO 09/05/17 09:00 10/05/17 08:59 Metoprolol Succinate (Toprol Xl Tab) 100 mg QAM PO 09/05/17 09:00 10/05/17 08:59 Miscellaneous (Iv Fluids Completed) 1 ea PRN PRN N/A 09/04/17 16:15 09/04/18 16:14 Insulin Aspart (novoLOG ASPART) SLIDING SCALE If C... ACHS SC 09/04/17 17:15 10/04/17 17:14 UNV Glucose (Glucose 40% Gel) 15-30 GRAMS 15 GRAMS... UD PRN PO 09/04/17 17:00 10/04/17 16:59 UNV Glucose (Glucose Chew Tab) 4-8 Tablets 4 Tabl... UD PRN PO 09/04/17 17:00 10/04/17 16:59 UNV Dextrose (Dextrose 50% 50ML Syringe) 25-50ML 25ML FOR ... UD PRN IV 09/04/17 17:00 10/04/17 16:59 UNV Glucagon (Glucagon Inj) 1 mg UD PRN SQ 09/04/17 17:00 10/04/17 16:59 UNV Carbohydrates (Carbohydrates For Hypoglycemia) 15-30 GRAMS 15 grams if BSG 54-69... UD PRN PO 09/04/17 17:00 10/04/17 16:59 UNV Ibuprofen (Motrin Tab) 600 mg Q6 PRN PO 09/04/17 17:00 10/04/17 16:59 UNV Acetaminophen (Tylenol Tab) 500 mg Q6 PRN PO 09/04/17 17:00 10/04/17 16:59 UNV Meloxicam (Mobic Tab) 7.5 mg BID PO 09/04/17 21:00 10/04/17 20:59 UNV Non-Formulary Medication (Multiple Vitamin (Multivitamins)) 1 tab QAM PO 09/05/17 09:00 10/05/17 08:59 UNV Non-Formulary Medication (Omeprazole (Prilosec)) 20 mg BID PO 7/24/18 21:00 10/04/17 20:59 UNV Clindamycin Phosphate 600 mg/ Dextrose 54 ml @ 100 mls/hr Q8H IV 09/04/17 17:15 09/14/17 17:14 UNV Review of Systems See HPI for pertinent positives & negatives. All other systems reviewed and were otherwise negative Physical Exam Date Time Temp Pulse Resp B/P (MAP) Pulse Ox O2 Delivery O2 Flow Rate FiO2 09/04/17 16:41 36.5 64 16 136/82 (100) 94 Room Air 09/04/17 16:11 36.5 60 16 131/85 (100) 94 Room Air 09/04/17 15:43 36.6 63 16 150/82 (104) 100 Room Air 09/04/17 15:40 100 Room Air 09/04/17 15:40 100 Room Air 09/04/17 15:25 36.5 61 16 168/88 97 Nasal Cannula 2 09/04/17 15:15 62 16 152/95 95 Nasal Cannula 2 09/04/17 15:05 74 16 162/89 100 Room Air 09/04/17 14:55 78 16 162/86 100 Oxymask 3 09/04/17 14:45 36.6 86 16 161/86 97 Oxymask 5 09/04/17 13:00 62 16 172/76 96 Room Air 09/04/17 11:13 56 16 181/89 96 Room Air 09/04/17 09:56 36.7 67 18 179/78 96 Room Air General Appearance: WD/WN, no apparent distress Head: normocephalic, atraumatic Eyes: normal inspection ENT: hearing grossly normal, pharynx normal, + pertinent finding (mucous membranes moist) Neck: supple, trachea midline Respiratory/Chest: lungs clear, normal breath sounds, no respiratory distress Cardiovascular: regular rate, rhythm, no murmur Abdomen/GI: normal bowel sounds, non tender, soft Extremities/Musculoskelatal: no calf tenderness, no pedal edema, + pertinent finding (R index finger with surgical dressing in place to distal finger, ROM PIP and MCP intact, reports no sensation to light touch (reports this is chronic ). Remaining extremities non-tender, ROM intact) Neurologic/Psych: alert, normal mood/affect, oriented x 3 Skin: warm/dry Laboratory Results Last 24 Hours Test 7/24/18 10:35 09/04/17 15:01 White Blood Count 6.74 K/uL Red Blood Count 4.47 M/uL Hemoglobin 13.8 g/dL Hematocrit 40.3 % Mean Corpuscular Volume 90.2 fL Mean Corpuscular Hemoglobin 30.9 pg Mean Corpuscular Hemoglobin Concent 34.2 g/dl Platelet Count 241 K/uL Mean Platelet Volume 9.3 fL Neutrophils (%) (Auto) 68.6 % Lymphocytes (%) (Auto) 23.1 % Monocytes (%) (Auto) 4.9 % Eosinophils (%) (Auto) 3.0 % Basophils (%) (Auto) 0.3 % Neutrophils # (Auto) 4.62 K/uL Lymphocytes # (Auto) 1.56 K/uL Monocytes # (Auto) 0.33 K/uL Eosinophils # (Auto) 0.20 K/uL Basophils # (Auto) 0.02 K/uL RDW Standard Deviation 41.4 fL RDW Coefficient of Variation 12.7 % Immature Granulocyte % (Auto) 0.1 % Immature Granulocyte # (Auto) 0.01 K/uL Sodium Level 138 mmol/L Potassium Level 4.1 mmol/L Chloride Level 105 mmol/L Carbon Dioxide Level 25 mmol/L Anion Gap 8.0 mmol/L Blood Urea Nitrogen 14 mg/dl Creatinine 0.78 mg/dl Est Creatinine Clear Calc Drug Dose 74.8 ml/min Estimated GFR () 89.9 Estimated GFR (Non- 77.6 BUN/Creatinine Ratio 17.6 Random Glucose 156 mg/dl Calcium Level 8.8 mg/dl Bedside Glucose 126 mg/dl Assessment & Plan POST OP DAY #0 S/P R INDEX FINGER DEBRIDEMENT BY DR AYALA No leukocytosis, afebrile -pain management per ortho -wound management per ortho -incentive spirometry -monitor H&H for acute blood loss anemia -cbc, prp in am -pending blood cultures and gram stain and culture of wound -Clindamycin for now, pending ID consult placed by ortho for further recommendations DM II A1c: 8.3 in 05/2017 -hold metformin and glimepiride -insulin sliding scale per protocol HTN Stable -continue amlodipine, hydralazine, losartan, metoprolol DYSLIPIDEMIA -continue atorvastatin ANXIETY -continue Effexor FIBROMYALGIA -hold meloxicam as pt getting ibuprofen prn pain in hospital DVT Prophylaxis -SCDs for now since post-op, reevaluate Disposition per surgical team Full Code Follows with Dr Montague for routine care Pt was seen with Dr Everett. See addendum Pt will be followed by Dr Cline during remaining hospital course Attending Note Patient is seen and examined at bedside. I personally reviewed the chart. Patient denies any pain currently at the post op site. She denies any symptoms. I agree with above management. Patient's care is coordinated with Gely Cabrales PA-C. Please refer to the documentation above for details of patient's presentation and for discussion of other issues. Additional Copies To Jeff Montague M.D.
[2017-09-04] MEDS: PANTOprazole SOD 40 MG TAB PO SCH (20:52)
[2017-09-04] MEDS: HydrALAZINE 10 MG TAB PO SCH (20:52)
[2017-09-04] MEDS ORDERED: OXYBUTYNIN CHLORIDE 5 MG TAB PO SCH (21:00)
[2017-09-04] MEDS ORDERED: ATORVASTATIN 40 MG TAB PO SCH (21:00)
[2017-09-04] MEDS ORDERED: MELOXICAM 7.5 MG TAB PO SCH (21:00)
[2017-09-04] MEDS ORDERED: COUGH DROP (SUGAR FREE) LOZ 24 LOZ/1 BOX LOZ ONE (23:14)
[2017-09-04] MEDS ORDERED: NURSING DECISION MEDICATION ORDER SCH (23:15)
[2017-09-04] MEDS ORDERED: COUGH DROP (SUGAR FREE) LOZ 24 LOZ/1 BOX LOZ PRN (23:30)
[2017-09-05] MEDS: CLINDAMYCIN IV 600 MG in DEXTROSE 5% 50ML 50 ML IV SCH ×2 (02:23→09:13)
[2017-09-05 03:09] VITALS: BP 139/82; PULSE 67; TEMP 36.8; O2SAT 97
[2017-09-05] MEDS ORDERED: CEFAZOLIN SOD 2000MG/15 ML IV PUSH IV ONE (06:00)
[2017-09-05 07:01] LABS: HEMATOCRIT 36.1 % (37-47); HEMOGLOBIN 12.3 g/dL (12.0-16.0); MEAN CELL VOLUME 91.2 fL (80-100); MEAN CORPUSCULAR HEMOGLOBIN 31.1 pg (25-34); MEAN CORPUSCULAR HGB CONC 34.1 g/dl (32-36); MEAN PLATELET VOLUME 9.3 fL (7.4-10.4); PLATELET COUNT 196 K/uL (130-400); RED CELL DISTRIBUTION WIDTH CV 12.6 % (11.5-14.5); RED CELL DISTRIBUTION WIDTH SD 42.3 fL (36.4-46.3)
[2017-09-05 07:07] VITALS: BP 132/82; PULSE 70; TEMP 36.6; O2SAT 91
[2017-09-05 07:28] LABS: CALCIUM 8.2 mg/dl (8.5-10.1); CREATININE 0.7 mg/dl (0.60-1.20); POTASSIUM 3.8 mmol/L (3.5-5.1)
[2017-09-05] MEDS: PANTOprazole SOD 40 MG TAB PO SCH (08:17)
[2017-09-05] MEDS: HydrALAZINE 10 MG TAB PO SCH ×2 (08:18→13:31)
[2017-09-05] MEDS: INSULIN ASPART 100 UNITS/ML 3 ML PEN SC SCH ×2 (08:21→13:06)
[2017-09-05] MEDS ORDERED: LOSARTAN POTASSIUM 50 MG TAB PO SCH (09:00)
[2017-09-05] MEDS ORDERED: ASPIRIN 81 MG ECTAB PO SCH (09:00)
[2017-09-05] MEDS ORDERED: CEROVITE ADV FORMULA TAB PO SCH (09:00)
[2017-09-05] MEDS ORDERED: INSULIN GLARGINE SOLOSTAR 100 UNITS/ML 3 ML PEN SC SCH (09:00)
[2017-09-05] MEDS ORDERED: AMLODIPINE BESYLATE 5 MG TAB PO SCH (09:00)
[2017-09-05] MEDS ORDERED: VENLAFAXINE HCL XR 37.5 MG CAPXR PO SCH (09:00)
[2017-09-05] MEDS ORDERED: ASCORBIC ACID 500 MG TAB PO SCH (09:00)
[2017-09-05] MEDS ORDERED: METOPROLOL SUCC 50MG EXT REL TAB PO SCH (09:00)
--- NOTE | 2017-09-05 09:17 | Discharge Instructions ---
Discharge Instructions Date of Service Sep 05, 2017. Admission Reason for Admission: Infected Right Index Finger Discharge Discharge Diagnosis / Problem: Right Index Finger infection vs Crush Injury Discharge Goals Goal(s): Decrease discomfort, Improve function Activity Recommendations Activity Limitations: per Instructions/Follow-up section . Instructions / Follow-Up Instructions / Follow-Up ACTIVITY RECOMMENDATIONS: * Avoid lifting anything heavier than a medium water glass until your first post operative visit. SPECIAL CARE INSTRUCTIONS: * Your bandage should be left in place until seen in office. * Some drainage onto the dressing may occur. This is normal. * If the bandage feels excessively tight, you may loosen the elastic bandage. Then call the physician's office for further instructions. * If possible, keep your hand elevated above the level of your heart for the first 2 post operative days. You may use a sling if necessary. * You should move your fingers regularly (50-100 motions per hour) unless otherwise instructed. SPECIAL PRECAUTIONS: * If you notice increased drainage, fever over 101 degrees F. or severe, unremitting pain, call your physician/office at . * You may have been prescribed pain medication. If you experience nausea and/or skin rash, discontinue this medication and contact our office for an alternative medication. FOLLOW UP VISIT: If appointment is not already scheduled: Follow up at [facility] to see Dr Meneses (Hand Surgeon) at 12:30pm on 09/06/17 after your surgery at . Current Hospital Diet Patient's current hospital diet: Diabetes Type 2 Diet Discharge Diet Recommended Diet: Diabetes Type 2 Diet Procedures Procedures Performed: Right Index Finger Incision and Drainage Pending Studies Studies pending at discharge: no Medical Emergencies . Who to Call and When: Medical Emergencies: If at any time you feel your situation is an emergency, please call 911 immediately. . Non-Emergent Contact Non-Emergency issues call your: Surgeon Call Non-Emergent contact if: temperature is above 101.5, your pain is not controlled, your pain is worsening, wound has increased drainage, wound has increased redness . "Provider Documentation" section prepared by Jose Najera. . [place] Drug Monitoring Program Search Results: patient reviewed within database, no issues identified
--- NOTE | 2017-09-05 09:33 | Orthopedic Progress Note ---
Orthopedic Progress Note Date of Service Sep 05, 2017. Subjective Post OP Day: 1 Reports: feeling well, Denies: chest pain, SOB, nausea / vomiting, light headedness Additional Notes: Sitting in chair this AM. Has a little bit of a sore throat this AM. Feels "sore" all over. Right finger without pain. Objective Dressings on right hand and finger are clean and dry. Plan to leave dressing on today. Moving finger but with less ROM mostly due to bandage. Date Time Temp Pulse Resp B/P (MAP) Pulse Ox O2 Delivery O2 Flow Rate FiO2 09/05/17 07:20 Room Air 09/05/17 07:07 36.6 70 18 132/82 (99) 91 Room Air 09/05/17 03:09 36.8 67 18 139/82 (101) 97 Room Air 09/04/17 23:16 36.5 64 16 133/81 (98) 94 Room Air 09/04/17 23:10 Room Air 09/04/17 20:50 67 133/79 (97) 94 Room Air 09/04/17 18:45 36.0 66 17 137/83 (101) 93 Room Air 09/04/17 17:40 36.7 60 16 137/83 (101) 92 Room Air 09/04/17 16:41 36.5 64 16 136/82 (100) 94 Room Air 09/04/17 16:11 36.5 60 16 131/85 (100) 94 Room Air 09/04/17 15:43 36.6 63 16 150/82 (104) 100 Room Air 09/04/17 15:40 100 Room Air 09/04/17 15:40 100 Room Air 09/04/17 15:25 36.5 61 16 168/88 97 Nasal Cannula 2 09/04/17 15:15 62 16 152/95 95 Nasal Cannula 2 09/04/17 15:05 74 16 162/89 100 Room Air 09/04/17 14:55 78 16 162/86 100 Oxymask 3 09/04/17 14:45 36.6 86 16 161/86 97 Oxymask 5 09/04/17 13:00 62 16 172/76 96 Room Air 09/04/17 11:13 56 16 181/89 96 Room Air 09/04/17 09:56 36.7 67 18 179/78 96 Room Air Laboratory Results 24 Hours: Test 09/04/17 10:35 09/05/17 06:27 White Blood Count 6.74 K/uL Red Blood Count 4.47 M/uL Hemoglobin 13.8 g/dL 12.3 g/dL Hematocrit 40.3 % 36.1 % Mean Corpuscular Volume 90.2 fL Mean Corpuscular Hemoglobin 30.9 pg Mean Corpuscular Hemoglobin Concent 34.2 g/dl Platelet Count 241 K/uL Mean Platelet Volume 9.3 fL Neutrophils (%) (Auto) 68.6 % Lymphocytes (%) (Auto) 23.1 % Monocytes (%) (Auto) 4.9 % Eosinophils (%) (Auto) 3.0 % Basophils (%) (Auto) 0.3 % Neutrophils # (Auto) 4.62 K/uL Lymphocytes # (Auto) 1.56 K/uL Monocytes # (Auto) 0.33 K/uL Eosinophils # (Auto) 0.20 K/uL Basophils # (Auto) 0.02 K/uL Assessment & Plan Assessment: Right Index Finger Infection/Crush Injury. Few Gram + Cocci on Cx noted Plan: Plan for DC today if possible. F/U with Dr Meneses tomorrow at the office. Cx pending / Currently on IV Clindamycin Dr La to see and advise on antibx. (1) [facility] Inhouse Planning Pain Management: other (Ibuprofen)
[2017-09-05 11:00] VITALS: BP 135/84; PULSE 84; TEMP 36.6; O2SAT 97
[2017-09-05] MEDS: SODIUM CHLORIDE 0.9% 1000ML 1,000 ML IV SCH (12:12)
[2017-09-05] MEDS ORDERED: NURSING VERBAL MED ORDER ONE (12:15)
--- NOTE | 2017-09-05 15:09 | Medical Consult ---
Consultation Date of Consultation: Sep 05, 2017. Attending Physician: Shaq Montanez M.D. Reason for Consultation: Right index finger infection History of Present Illness 67-year-old female with history of diabetes mellitus and hypertension, injured her right finger earlier this year after cutting it with a knife, developing secondary infection treated with antibiotics. She was well until several days prior to admission when she noted progressive blackening of the tip of her right index finger. She was referred for orthopedic management but admitted because of need for surgical debridement. She has now undergone surgery with debridement of the tip of her finger, no obvious evidence of osteomyelitis. Gram stain soaks gram-positive cocci now growing coagulase-negative staph. Patient has been afebrile, tolerating antibiotics without apparent difficulty. Denies any significant increase in pain, no other new complaints. Past Medical/Surgical History Medical Problems: (1) Pyelonephritis Status: Acute Medical Problems: (1) Anxiety (2) Bacteremia (3) Degenerative joint disease (DJD) of hip (4) DM type 2 (diabetes mellitus, type 2) (5) Dyslipidemia (6) Fibromyalgia (7) HTN (hypertension) (8) Infected Right Index Finger (9) Pharyngitis (10) UTI (urinary tract infection) Surgical Problems: (1) History of left knee replacement (2) Hx of bilateral hip replacements (3) Hx of hysterectomy Family History Diabetes mellitus Hypertension Social History Smoking Status: Never Smoker Smokeless Tobacco Use: No Alcohol Use: none Drug Use: none Marital Status: Housing Status: lives with family Occupation Status: unemployed Allergies Coded Allergies: Amitriptyline (Verified Allergy, Severe, throat swells, 09/04/17) Latex1 -Allergic Contact Dermititis (Verified Allergy, Intermediate, "red welts, 09/04/17) Morphine (Verified Allergy, Intermediate, HIVES, 09/04/17) Hydrocodone (Verified Allergy, Mild, "itching", 09/04/17) Tramadol (Verified Allergy, Mild, "itching", 09/04/17) Levofloxacin (Verified Allergy, Unknown, UNKNOWN, 09/04/17) Rofecoxib (Verified Allergy, Unknown, `, 09/04/17) Duloxetine (Verified Adverse Reaction, Intermediate, "severe muscle aches ", 09/04/17) Lisinopril (Verified Adverse Reaction, Mild, "cough", 09/04/17) Nortriptyline (Verified Adverse Reaction, Mild, "was wide awake", 09/04/17) Current Inpatient Medications Current Inpatient Medications Medications (Trade) Dose Ordered Sig/Shanta Route Start Time Stop Time Status Last Admin Dose Admin Amlodipine Besylate (Norvasc Tab) 5 mg DAILY PO 09/05/17 09:00 10/05/17 08:59 09/05/17 08:19 5 MG Ascorbic Acid (Vitamin C Tab) 500 mg QAM PO 09/05/17 09:00 10/05/17 08:59 09/05/17 08:18 500 MG Aspirin (Ecotrin Tab) 81 mg DAILY PO 09/05/17 09:00 10/05/17 08:59 09/05/17 08:18 81 MG Atorvastatin Calcium (Lipitor Tab) 40 mg QPM PO 09/04/17 21:00 10/04/17 20:59 09/04/17 20:52 40 MG Hydralazine HCl (Apresoline Tab) 10 mg TID PO 09/04/17 21:00 10/04/17 20:59 09/05/17 13:31 10 MG Losartan Potassium (coZAAR TAB) 100 mg QAM PO 09/05/17 09:00 10/05/17 08:59 09/05/17 08:19 100 MG Oxybutynin Chloride (Ditropan Tab) 5 mg QPM PO 09/04/17 21:00 10/04/17 20:59 09/04/17 20:52 5 MG Venlafaxine HCl (effeXOR EXTENDED REL CAP) 37.5 mg DAILY PO 09/05/17 09:00 10/05/17 08:59 09/05/17 08:19 37.5 MG Metoprolol Succinate (Toprol Xl Tab) 100 mg QAM PO 09/05/17 09:00 10/05/17 08:59 09/05/17 08:17 100 MG Miscellaneous (Iv Fluids Completed) 1 ea PRN PRN N/A 09/04/17 16:15 09/04/18 16:14 Insulin Aspart (novoLOG ASPART) SLIDING SCALE If C... ACHS SC 09/04/17 17:15 10/04/17 17:14 09/05/17 13:06 4 UNITS Glucose (Glucose 40% Gel) 15-30 GRAMS 15 GRAMS... UD PRN PO 09/04/17 17:00 10/04/17 16:59 Glucose (Glucose Chew Tab) 4-8 Tablets 4 Tabl... UD PRN PO 09/04/17 17:00 10/04/17 16:59 Dextrose (Dextrose 50% 50ML Syringe) 25-50ML 25ML FOR ... UD PRN IV 09/04/17 17:00 10/04/17 16:59 Glucagon (Glucagon Inj) 1 mg UD PRN SQ 09/04/17 17:00 10/04/17 16:59 Carbohydrates (Carbohydrates For Hypoglycemia) 15-30 GRAMS 15 grams if BSG 54-69... UD PRN PO 09/04/17 17:00 10/04/17 16:59 Ibuprofen (Motrin Tab) 600 mg Q6 PRN PO 09/04/17 17:00 10/04/17 16:59 Acetaminophen (Tylenol Tab) 500 mg Q6 PRN PO 09/04/17 17:00 10/04/17 16:59 09/05/17 08:32 500 MG Multivitamins/ Minerals (Multivitamin W/ Minerals Tab) 1 tab QAM PO 09/05/17 09:00 10/05/17 08:59 09/05/17 08:17 1 TAB Pantoprazole Sodium (Protonix Tab) 40 mg BID PO 09/04/17 21:00 10/04/17 20:59 09/05/17 08:17 40 MG Clindamycin Phosphate 600 mg/ Dextrose 54 ml @ 100 mls/hr Q8H IV 09/04/17 18:00 09/14/17 17:59 09/05/17 09:13 100 MLS/HR Insulin Glargine (Lantus Solostar Pen) 7 units DAILY SC 09/05/17 09:00 10/05/17 08:59 09/05/17 09:16 7 UNITS Menthol (Nice Siva) 1 siva PRN PRN SIVA 09/04/17 23:30 10/04/17 23:29 Review of Systems All systems were reviewed and are negative except as per HPI except for severe generalized muscle and joint pain Physical Exam Date Time Temp Pulse Resp B/P (MAP) Pulse Ox O2 Delivery O2 Flow Rate FiO2 7/25/18 11:00 36.6 84 18 135/84 (101) 97 Room Air 09/05/17 07:20 Room Air 09/05/17 07:07 36.6 70 18 132/82 (99) 91 Room Air 09/05/17 03:09 36.8 67 18 139/82 (101) 97 Room Air 09/04/17 23:16 36.5 64 16 133/81 (98) 94 Room Air 09/04/17 23:10 Room Air 09/04/17 20:50 67 133/79 (97) 94 Room Air 09/04/17 18:45 36.0 66 17 137/83 (101) 93 Room Air 09/04/17 17:40 36.7 60 16 137/83 (101) 92 Room Air 09/04/17 16:41 36.5 64 16 136/82 (100) 94 Room Air 09/04/17 16:11 36.5 60 16 131/85 (100) 94 Room Air 09/04/17 15:43 36.6 63 16 150/82 (104) 100 Room Air 09/04/17 15:40 100 Room Air 09/04/17 15:40 100 Room Air 09/04/17 15:25 36.5 61 16 168/88 97 Nasal Cannula 2 09/04/17 15:15 62 16 152/95 95 Nasal Cannula 2 General Appearance: WD/WN, no apparent distress Head: normocephalic, atraumatic Eyes: normal inspection, EOMI, sclerae normal ENT: normal ENT inspection, hearing grossly normal, pharynx normal Neck: supple, no adenopathy, thyroid normal, no JVD Respiratory/Chest: chest non-tender, lungs clear, normal breath sounds, no respiratory distress Cardiovascular: regular rate, rhythm, no gallop, no murmur Abdomen/GI: normal bowel sounds, non tender, soft, no organomegaly Back: normal inspection, no CVA tenderness Extremities/Musculoskelatal: no calf tenderness, normal capillary refill, non- tender Neurologic/Psych: alert, oriented x 3 Skin: normal color, warm/dry, no rash, + pertinent finding (Surgical dressing intact right index finger) Lymphatic: no adenopathy Laboratory Results Date/Time Source Procedure Growth Status 09/04/17 19:40 Nasal MRSA DNA Surveillance Screen - Final Specimen Negative for MRSA by DNA Probe Complete Last 24 Hours Test 09/04/17 17:15 09/04/17 20:51 09/05/17 06:27 09/05/17 07:23 Bedside Glucose 135 mg/dl 126 mg/dl 128 mg/dl White Blood Count 6.70 K/uL Red Blood Count 3.96 M/uL Hemoglobin 12.3 g/dL Hematocrit 36.1 % Mean Corpuscular Volume 91.2 fL Mean Corpuscular Hemoglobin 31.1 pg Mean Corpuscular Hemoglobin Concent 34.1 g/dl RDW Standard Deviation 42.3 fL RDW Coefficient of Variation 12.6 % Platelet Count 196 K/uL Mean Platelet Volume 9.3 fL Sodium Level 140 mmol/L Potassium Level 3.8 mmol/L Chloride Level 105 mmol/L Carbon Dioxide Level 27 mmol/L Anion Gap 7.0 mmol/L Blood Urea Nitrogen 13 mg/dl Creatinine 0.70 mg/dl Est Creatinine Clear Calc Drug Dose 83.3 ml/min Estimated GFR () 102.5 Estimated GFR (Non- 88.4 BUN/Creatinine Ratio 18.2 Random Glucose 132 mg/dl Calcium Level 8.2 mg/dl Test 09/05/17 12:03 Bedside Glucose 125 mg/dl Patient Name: JOSE ANTONIO ARCOS Unit Number: [id number] Dictated: 09/04/171034 Transcribed: 09/04/171034 JA Printed Date/Time: [~ rep prt dt]/[~ rep prt tm] [~ rep ct labl] - [~ rep ct ivnm] [facility] [place] [address] Dictated: 09/04/171034 Transcribed: 09/04/171034 Printed Date/Time: [~ rep prt dt]/[~ rep prt tm] [~ rep ct labl] - [~ rep ct ivnm] [~ rep ct add3]] R FINGER(S) MIN 2 VIEWS ROUTINE CLINICAL HISTORY: Right 2nd digit distal infectio.n COMPARISON: None FINDINGS: Soft tissue swelling of the right second finger is noted. There is no fracture or evidence for osteomyelitis. No radiopaque foreign bodies are identified. Note is made of moderate osteoarthritis within the articulations of the right second digit. IMPRESSION: No fracture or evidence of osteomyelitis within the right second finger. Right second finger soft tissue swelling. Electronically signed by: Balwinder Ocampo M.D. 09/04/2017 10:36 AM Dictated Date/Time: 09/04/2017 10:35 AM The status of this report is Signed. Draft = Not yet reviewed or approved by Radiologist. Signed = Reviewed and approved by Radiologist. <AttendingPhy></AttendingPhy> <FamilyPhy>Jeff Montague M.D.</FamilyPhy> < PrimaryPhy>Jeff Montague M.D.</PrimaryPhy> <UnitNumber>[id number]</UnitNumber > <VisitNumber>[id number]</VisitNumber> <PatientName>JOSE ANTONIO ARCOS</ PatientName> <DateOfBirth>1950</DateOfBirth> <Location>[facility]</Location> < ServiceDate>09/04/17</ServiceDate> <MNE>ESINDI</MNE> <OrderingPhy>Boris Bender PA-C</OrderingPhy> <OrderingPhyMNE>f rep ord dr reece</OrderingPhyMNE> < DictatingPhyMNE>f rep dict dr reece</DictatingPhyMNE> <CCListMNE>f rep ct chevy</ CCListMNE> <AdmittingPhyMNE>f pt admit dr reece</AdmittingPhyMNE> <AttendingPhyMNE >f pt attend dr reece</AttendingPhyMNE> <ConsultingPhyMNE>f pt consult dr reece</ConsultingPhyMNE> <FamilyPhyMNE>f pt fam dr reece</FamilyPhyMNE> <OtherPhyMNE>f pt other dr reece</OtherPhyMNE> < PrimaryPhyMNE>f pt prim care dr reece</PrimaryPhyMNE> <ReferringPhyMNE>f pt referring dr reece</ReferringPhyMNE> Assessment & Plan 67-year-old female with diabetes mellitus and fibromyalgia now presents with infection at the tip of her right index finger, status post debridement in the OR. Cultures growing coagulase-negative staph. I think the patient can be safely transitioned to oral antibiotics, and recommend combination of Augmentin 875 mg twice daily and Bactrim 1 DS twice daily for 2-week course.
[2017-09-05] MEDS ORDERED: AMOX875T PO (15:17)
[2017-09-05] MEDS ORDERED: SULF800T23 PO (15:17)
[2017-09-05] MEDS ORDERED: MTR600X PO (15:21)
[2017-09-05] MEDS ORDERED: ACET-24 PO (15:25)
[2017-09-05 16:00] VITALS: BP 135/84; PULSE 84; TEMP 36.6; O2SAT 97
--- NOTE | 2017-09-05 17:06 | Progress Note ---
Internal Med Progress Note Date of Service: Sep 05, 2017. Provider Documentation: SUBJECTIVE: The patient was seen and examined with medical floor She was consulted for medical management following right index finger I&D She denies to any symptoms except some discomfort at the operation site No fever, chills, right OBJECTIVE: Vital Signs-as noted below Exam: General-no apparent distress normal Eyes-normal ENT- normal Neck-supple Lungs-clear to auscultate bilaterally Heart-regular, no murmur Abdomen-benign Extremities-no edema Right index finger is bandage Neuro-alert ,awake and oriented times Lab data as noted below. ASSESSMENT & PLAN: POST OP DAY #1 S/P R INDEX FINGER DEBRIDEMENT BY DR AYALA No leukocytosis, afebrile -wound management per ortho -incentive spirometry -blood cultures pending -gram stain and wyhjzbq-ohwvjbuqv-dvktifmh Staphylococcus -Has been on clindamycin IV -Appreciate ID input and recommendation -Discharge home on Augmentin and Bactrim as per ID recommendation DM II A1c: 8.3 in 05/2017 -hold metformin and glimepiride -insulin sliding scale per protocol HTN Stable -continue amlodipine, hydralazine, losartan, metoprolol DYSLIPIDEMIA -continue atorvastatin ANXIETY -continue Effexor FIBROMYALGIA -hold meloxicam as pt getting ibuprofen prn pain in hospital DVT Prophylaxis -SCDs for now since post-op, reevaluate Disposition per surgical team Full Code Follows with Dr Montague for routine care Medically stable and discharged Vital Signs: Date Time Temp Pulse Resp B/P (MAP) Pulse Ox O2 Delivery O2 Flow Rate FiO2 09/05/17 16:00 36.6 84 18 97 Room Air 09/05/17 11:00 36.6 84 18 135/84 (101) 97 Room Air 09/05/17 07:20 Room Air 09/05/17 07:07 36.6 70 18 132/82 (99) 91 Room Air 09/05/17 03:09 36.8 67 18 139/82 (101) 97 Room Air 09/04/17 23:16 36.5 64 16 133/81 (98) 94 Room Air 09/04/17 23:10 Room Air 09/04/17 20:50 67 133/79 (97) 94 Room Air 09/04/17 18:45 36.0 66 17 137/83 (101) 93 Room Air 09/04/17 17:40 36.7 60 16 137/83 (101) 92 Room Air Lab Results: Results Past 24 Hours Test 09/04/17 17:15 09/04/17 20:51 09/05/17 06:27 09/05/17 07:23 Range/Units Bedside Glucose 135 126 128 70-90 mg/dl White Blood Count 6.70 4.8-10.8 K/uL Red Blood Count 3.96 4.2-5.4 M/uL Hemoglobin 12.3 12.0-16.0 g/dL Hematocrit 36.1 37-47 % Mean Corpuscular Volume 91.2 80-100 fL Mean Corpuscular Hemoglobin 31.1 25-34 pg Mean Corpuscular Hemoglobin Concent 34.1 32-36 g/dl RDW Standard Deviation 42.3 36.4-46.3 fL RDW Coefficient of Variation 12.6 11.5-14.5 % Platelet Count 196 130-400 K/uL Mean Platelet Volume 9.3 7.4-10.4 fL Sodium Level 140 136-145 mmol/L Potassium Level 3.8 3.5-5.1 mmol/L Chloride Level 105 98-107 mmol/L Carbon Dioxide Level 27 21-32 mmol/L Anion Gap 7.0 3-11 mmol/L Blood Urea Nitrogen 13 7-18 mg/dl Creatinine 0.70 0.60-1.20 mg/dl Est Creatinine Clear Calc Drug Dose 83.3 ml/min Estimated GFR () 102.5 Estimated GFR (Non- 88.4 BUN/Creatinine Ratio 18.2 10-20 Random Glucose 132 70-99 mg/dl Calcium Level 8.2 8.5-10.1 mg/dl Test 09/05/17 12:03 Range/Units Bedside Glucose 125 70-90 mg/dl Microbiology Results 09/04/17 MRSA DNA Surveillance Screen - Final, Complete Specimen Negative for MRSA by DNA Probe
--- NOTE | 2017-09-09 06:50 | EDITING REQUIRED CODING QUERY ---
DEBRIDEMENT DOCUMENTATION To promote full compliance with coding requirements relating to patient care, physician participation is requested in all cases of guard driver uncertainty. Please assist us with the question(s) below: Please place an X in the parenthesis (x). If other, please document the finding: Type of Debridement: (x) Excisional Debridement- Cutting away necrotic, devitalized tissue or slough to the level of viable tissue using a sharp instrument (i.e. scalpel, scissors, etc.) ( ) Non Excisional Debridement- The removal of necrotic, devitalized tissue or slough by means of scraping, mechanical brushing, flushing, or washing (i.e. irrigation,whirlpool);minor removal of loose fragments. ( ) Other (please specify): Depth of Debridement: (x) Skin ( ) Skin and Subcutaneous Tissue ( ) Skin, Subcutaneous Tissue and Muscle ( ) Skin, Subcutaneous Tissue, Muscle and Bone ( ) Other (please specify): Please Specify the Size of Debridement in cm2: 2 cm2 Thank you for your assistance, Angelica Irwin - Mill Order Scheduler
--- NOTE | 2017-09-10 12:26 | DISCHARGE SUMMARY ---
DISCHARGE DIAGNOSIS: Right index finger infection with epidermolysis. SECONDARY DIAGNOSES: History of diabetes mellitus type 2 with diabetic polyneuropathy, hypertension, anxiety, obesity, osteoarthritis, hyperlipidemia, gastroesophageal reflux disease, pyelonephritis in the past, degenerative joint disease, history of bacteremia in the past as well. CONSULTS: Gely Cabrales PA-C/Lon Everett M.D. COMPLICATIONS: None. PROCEDURES: Right index finger incision and drainage by Dr. Montanez on 09/04/2017. BRIEF HISTORY: As dictated in history and physical. HOSPITAL SUMMARY: The patient was admitted on the above date with the above-noted finger infection. She was then taken to the operating room by Dr. Montanez and the above-noted procedure was performed, which she tolerated well. On her first postoperative day, she was feeling well and had no complaints. She was sitting in her chair that morning at the bedside and complained of somewhat of a sore throat that morning and feeling somewhat sore all over her right fingers without pain. Dressings on the right hand and finger were clean and dry. She was moving her finger, but with less range of motion mostly due to bandage. Vital signs are stable. She is afebrile. Hemoglobin was 12.3. She was showing few gram-positive cocci on cultures, but was otherwise remaining stable. She was remaining medically stable and orthopedically stable and by 09/05/2017, was felt she could be discharged with plans to follow up with Dr. Meneses on 09/06/2017. For further review, please see chart. LAB AND X-RAY DATA: As per chart. DISCHARGE INSTRUCTIONS: The patient was discharged home in satisfactory condition on 09/05/2017. DIET: Diabetic. ACTIVITY: Follow activity recommendations and special care instructions as noted and follow up with Dr. Meneses at 12:30 p.m. on 09/06/2017. DISCHARGE MEDICATIONS: Acetaminophen 1000 mg p.o. q. 8 hours. p.r.n. pain, Augmentin 875/125 one tab p.o. b.i.d. for 14 days, Bactrim DS one tab p.o. b.i.d. for 14 days. Resume home meds as listed. MTDD
== END 2017-09-05 17:00 | disposition home or self-care (01) ==
LOC: C.EDB 09:53 → C.3E 12:19 → ENRESERV 15:14
PROVIDERS: ADMIT Orthopaedic Surgery Hand Surgery; ATTEND Orthopaedic Surgery Hand Surgery
DX: I96 Gangrene, not elsewhere classified (principal); L03.011 Cellulitis of right finger; E11.42 Type 2 diabetes mellitus with diabetic polyneuropathy; I10 Essential (primary) hypertension; E78.5 Hyperlipidemia, unspecified; M79.7 Fibromyalgia; Z87.440 Personal history of urinary (tract) infections; Z96.643 Presence of artificial hip joint, bilateral; Z96.652 Presence of left artificial knee joint; Z90.710 Acquired absence of both cervix and uterus; Z91.040 Latex allergy status; Z88.5 Allergy status to narcotic agent; Z79.4 Long term (current) use of insulin; Z79.82 Long term (current) use of aspirin

== ENCOUNTER 2020-07-19 04:54 | Observation (INO) ==
--- NOTE | 2020-05-21 15:19 | PAT Medication Instructions ---
Medication Instructions Date of Service May 21, 2020 Home Medications Medication Instructions Recorded oxycodone-acetaminophen [Percocet] 1 tab PO Q6H PRN #20 tab 03/25/20 oxycodone-acetaminophen 5 mg-325 1 tab PO Q6H PRN #60 tab 05/10/20 mg tablet amlodipine 5 mg PO QAM ascorbic acid (vitamin C) [Vitamin C] 500 mg PO QAM aspirin [Aspir-81] 81 mg PO QAM atorvastatin 40 mg PO HS glipizide 5 mg PO TID hydralazine 10 mg PO TID metformin 1,000 mg PO BIDM metoprolol succinate 100 mg PO QAM multivitamin 1 tab PO QAM omega 4-mtt-buq-fish oil [Fish Oil] 1 tab PO QAM omeprazole 20 mg PO QAM losartan 100 mg tablet 100 mg PO QAM pioglitazone 30 mg tablet 30 mg PO QAM celecoxib [Celebrex] 200 mg PO QAM venlafaxine 150 mg PO QAM oxycodone-acetaminophen [Percocet] 1 tab PO Q6H PRN oxycodone-acetaminophen 5 mg-325 mg tablet 1 tab PO Q6H PRN ASK your prescriber and surgeon aspirin [Aspir-81] 81 mg PO QAM STOP taking 2 weeks before surgery (or as soon as possible if surgery is within 2 weeks) omega 8-qon-pkf-fish oil [Fish Oil] 1 tab PO QAM DO NOT take the morning of surgery ascorbic acid (vitamin C) [Vitamin C] 500 mg PO QAM glipizide 5 mg PO TID metformin 1,000 mg PO BIDM multivitamin 1 tab PO QAM losartan 100 mg tablet 100 mg PO QAM pioglitazone 30 mg tablet 30 mg PO QAM Take morning of surgery With a small sip of water, OTHERWISE NOTHING TO EAT OR DRINK AFTER MIDNIGHT: amlodipine 5 mg PO QAM hydralazine 10 mg PO TID metoprolol succinate 100 mg PO QAM omeprazole 20 mg PO QAM venlafaxine 150 mg PO QAM oxycodone-acetaminophen [Percocet] 1 tab PO Q6H PRN (okay to take up to 4 hours prior to surgery if needed) oxycodone-acetaminophen 5 mg-325 mg tablet 1 tab PO Q6H PRN (okay to take up to 4 hours prior to surgery if needed) Take evening before surgery atorvastatin 40 mg PO HS glipizide 5 mg PO TID hydralazine 10 mg PO TID metformin 1,000 mg PO BIDM oxycodone-acetaminophen [Percocet] 1 tab PO Q6H PRN (if needed) oxycodone-acetaminophen 5 mg-325 mg tablet 1 tab PO Q6H PRN (if needed) Other Notes If you have any questions please call us at [phone] or [phone] or [phone] or [phone]
--- NOTE | 2020-05-25 11:23 | Anesthesiology Consultation ---
Date of Service May 25, 2020 Assessment & Plan (1) Encounter for pre-operative examination: - COVID screening: Per assessment on 05/25: Travel screen negative, no known COVID-19 positive contacts or current COVID-19 related symptoms. Surgeon larisa arrieta preop COVID testing (scheduled 06/14; JOSE Baez). Awaiting results. - Check [facility] AM DOS Chart Review Chart Review: Acceptable Risk for Surgery and Patient seen in Pre Admission Testing Teaching & Discussion Pre-Anesthesia Teaching/Discussion Notes: Instructed NPO after midnight before surgery,except medications with 15 cc of water. Medication instructions provided according to the PAT guidelines. History Surgery Operation Date: 06/21/20 11:10 Proposed Procedures p Right Reverse Total Shoulder Arthroplasty - Rico Gonzalez, Height/Weight Height: 5 ft 2 in Weight: 98.7 kg Allergies Allergy/AdvReac Type Severity Reaction Status Date / Time amitriptyline Allergy Severe Throat Verified 05/25/20 11:40 swelling latex Allergy Intermediate Rash Verified 05/21/20 16:41 morphine Allergy Intermediate Hives, Verified 05/25/20 11:40 confusion hydrocodone Allergy Mild Pruritus Verified 05/25/20 11:40 tramadol Allergy Mild Pruritus Verified 05/25/20 11:40 levofloxacin Allergy Unknown Unknown Verified 05/25/20 11:40 rofecoxib Allergy Unknown Unknown Verified 05/25/20 11:40 duloxetine AdvReac Intermediate Severe Verified 05/25/20 11:40 myalgias lisinopril AdvReac Mild Cough Verified 05/25/20 11:40 nortriptyline AdvReac Mild Insomnia Verified 05/25/20 11:40 Medications Home Medications Medication Instructions Recorded Confirmed Last Taken amlodipine 5 mg PO QAM 10/19/17 05/21/20 03/25/20 05:30 ascorbic acid (vitamin C) [Vitamin 500 mg PO QAM 10/19/17 05/21/20 03/24/20 C] aspirin [Aspir-81] 81 mg PO QAM 10/19/17 05/21/20 03/23/20 atorvastatin 40 mg PO HS 10/19/17 05/21/20 03/24/20 glipizide 10 mg PO QAM 10/19/17 05/21/20 03/24/20 hydralazine 10 mg PO TID 09/08/2905/21/20 03/25/20 05:30 metformin 1,000 mg PO BIDM 10/19/17 05/21/20 03/24/20 metoprolol succinate 100 mg PO QAM 10/19/17 05/21/20 03/25/20 05:30 multivitamin 1 tab PO QAM 10/19/17 05/21/20 03/24/20 omega 7-zyd-ejd-fish oil [Fish Oil] 1 tab PO QPM 10/19/17 05/21/20 03/24/20 omeprazole 20 mg PO QAM 10/19/17 05/21/20 03/25/20 05:30 losartan 100 mg tablet 100 mg PO QAM 11/15/18 05/21/20 03/25/20 05:30 pioglitazone 30 mg tablet 30 mg PO QAM 12/10/18 05/21/20 07/17/19 celecoxib [Celebrex] 200 mg PO QAM 07/17/19 05/21/20 03/24/20 oxycodone-acetaminophen 5 mg-325 1 tab PO Q6H PRN #60 tab 05/10/20 05/21/20 Unknown mg tablet gabapentin 100 mg PO BID 05/21/20 05/21/20 Unknown glipizide 5 mg PO HS 05/21/20 05/21/20 Unknown venlafaxine 150 mg PO QAM 05/21/20 05/21/20 Unknown Past Medical History Medical History Anxiety Claustrophobia Degenerative disc disease DM type 2 (diabetes mellitus, type 2) NIDDM Dyslipidemia Fibromyalgia GERD (gastroesophageal reflux disease) controlled Hiatal hernia [place] (hard of hearing) HTN (hypertension) IBS (irritable bowel syndrome) Lumbar radiculopathy Obesity Osteoarthritis Overactive bladder Polyneuropathy Spinal stenosis Exercise / Class Metabolic Activity III < 4 Walking/Shop/Light housework Past Family History Family History Father Diabetes Mother Heart disease Other No family history of adverse response to anesthesia Past Surgical History Surgical History H/O carpal tunnel repair R/L ([place] CTR: 03[place]25[place]20[place] [facility] [place] H/O: hysterectomy History of cholecystectomy History of colonoscopy History of esophagogastroduodenoscopy (EGD) History of knee replacement Left Hx of bilateral hip replacements Past Anesthesia History No Hx of Anesthesia Complications and No Family Hx of Anesthesia Complications History of PONV No Hx of PONV and No Hx of Motion Sickness Social History Smoking Status: Never smoker Do You Dip or Chew Tobacco: No Hx Alcohol Use: No Hx Substance Use: No substance use type: does not use Review of Systems Patient denies chest pain, shortness of breath, fever, chills, cough, wheezing, palpitations. Physical Exam Vital Signs VITALS BP 144/79 P 66 TEMP 97.9 SP02 100%RA RESP 16 PHYSICAL Full cervical extension range of motion. Full TMJ range of motion. TMD 3.5 finger breaths Mallampati Score 1 Dentition: upper full plate Lungs: clear throughout to auscultation Cardiac: regular rate and rhythm, no murmurs noted Spine: normal Carotid arteries: negative bruit Extremities: no edema Testing Laboratory Results 05/25/20 11:45 05/25/20 11:45 PT 10.0 Seconds (9.0-12.0) 05/25/20 11:45 INR 1.0 (0.9-1.1) 05/25/20 11:45 APTT 25.6 Seconds (21.0-31.0) 05/25/20 11:45 Hemoglobin A1c 7.9 % (4.5-5.6) H 05/25/20 11:45 Blood Type O Negative 05/25/20 11:45 Antibody Screen NEGATIVE 05/25/20 11:45 Surgeon's office made aware of elevated hgba1c* Electrocardiogram Date: 05/25/20 NSR at 67bpm. unconfirmed report. Chest X-Ray Date: 05/25/20 FINDINGS: Cardiomediastinal and hilar silhouettes are within normal limits. Calcified plaque the thoracic aorta. No pneumothorax, pleural effusion, airspace consolidation or overt pulmonary edema. Unchanged minimal linear scarring/atelectasis of the lateral left midlung. Degenerative changes of the shoulders and spine. Surgical clips project over the abdominal right upper quadrant. IMPRESSION: No acute process.
--- NOTE | 2020-05-25 12:42 | XRay Report ---
XR chest Pre-admission PA/Lat HISTORY: 70 years-old Female PAT chronic degenerative joint disease COMPARISON: Acute abdominal series radiographs 10/19/2017 TECHNIQUE: PA and lateral views of the chest FINDINGS: Cardiomediastinal and hilar silhouettes are within normal limits. Calcified plaque the thoracic aorta . No pneumothorax, pleural effusion, airspace consolidation or overt pulmonary edema. Unchanged minim al linear scarring/atelectasis of the lateral left midlung. Degenerative changes of the shoulders and spine. Surgical clips project over the abdominal right upper quadrant. IMPRESSION: No acute process. ACT 112: Negative or not required by law. The above report was generated using voice recognition software. It may contain grammatical, syntax o r spelling errors. Electronically signed by: Vinay Mcgraw M.D. 05/25/2020 12:41 PM
[2020-05-25 12:53] LABS: Basophils # (auto) 0.02 K/uL (0-0.2); Basophils % (auto) 0.3 %; Eosinophils # (auto) 0.19 K/uL (0-0.5); Eosinophils % (auto) 3.2 %; Hematocrit (blood only) 37.1 % (37-47); Hemoglobin 12.3 g/dL (12.0-16.0); Immature Granulocytes # (auto) 0.02 K/uL (0.00-0.02); Immature Granulocytes % (auto) 0.3 %; Lymphocytes # (auto) 1.46 K/uL (1.2-3.4); Lymphocytes % (auto) 24.6 %; Mean Corpuscular Hemoglobin 30.3 pg (25-34); Mean Corpuscular Hgb Conc 33.2 g/dL (32-36); Mean Corpuscular Volume 91.4 fL (80-100); Mean Platelet Volume 9.2 fL (7.4-10.4); Monocytes % (auto) 6.7 %; Neutrophils # (auto) 3.85 K/uL (1.4-6.5); Neutrophils % (auto) 64.9 %; Platelet Count 276 K/uL (130-400); RDW Coefficient of Variation 13.6 % (11.5-14.5); RDW Standard Deviation 45.2 fL (36.4-46.3); Red Blood Count 4.06 M/uL (4.2-5.4); White Blood Count 5.94 K/uL (4.8-10.8)
[2020-05-25 13:04] LABS: BUN Creatinine Ratio 36.4 (10-20); Calcium 8.6 mg/dl (8.5-10.1); Creatinine Clr Calc Pharmacy 74.4 ml/min; Est GFR (African American) 92.3; Est GFR (Non-African American) 79.6; Potassium 4.2 mmol/L (3.5-5.1)
[2020-05-25 13:06] LABS: Partial Thromboplastin Time 25.6 Seconds (21.0-31.0)
[2020-05-25 13:22] LABS: Estimated Average Glucose 180 mg/dl; Hemoglobin A1C 7.9 % (4.5-5.6)
--- NOTE | 2020-05-26 06:42 | Electrocardiogram Report ---
Test Reason : Blood Pressure : / mmHG Vent. Rate : 067 BPM Atrial Rate : 067 BPM P-R Int : 224 ms QRS Dur : 092 ms QT Int : 396 ms P-R-T Axes : 068 079 039 degrees QTc Int : 418 ms Sinus rhythm with 1st degree A-V block When compared with ECG of 04-SEP-2017 12:26, No significant change was found Confirmed by Terrence Monge ([id number]) on 05/26/2020 6:42:07 AM Referred By: Rico Gonzalez Confirmed By:Terrence Monge
--- NOTE | 2020-07-15 07:18 | History & Physical Report ---
Date of Service July 15, 2020 Assessment & Plan (1) Rotator cuff arthropathy of right shoulder: We will proceed with a right reverse shoulder arthroplasty. Postoperatively she will be placed in a sling and kept overnight for postoperative medical management. She plans to use home nursing arranged by the hospital upon discharge. History of Present Illness Chief Complaint: Rotator cuff arthropathy of the right shoulder. Primary Care Provider: Jeff Montague MD Mikayla is a pleasant 70-year-old whom I been treating for chronic cuff arthro [place] of the right shoulder. She has significant weakness and pain in her shoulder. Unfortunate her symptoms have gotten worse. She is failing conservative treatment including multiple injections. She has elected proceed with a right reverse shoulder arthroplasty.. Allergies Allergy/AdvReac Type Severity Reaction Status Date / Time amitriptyline Allergy Severe Throat Verified 05/25/20 11:40 swelling latex Allergy Intermediate Rash Verified 05/21/20 16:41 morphine Allergy Intermediate Hives, Verified 05/25/20 11:40 confusion hydrocodone Allergy Mild Pruritus Verified 05/25/20 11:40 tramadol Allergy Mild Pruritus Verified 05/25/20 11:40 levofloxacin Allergy Unknown Unknown Verified 05/25/20 11:40 rofecoxib Allergy Unknown Unknown Verified 05/25/20 11:40 duloxetine AdvReac Intermediate Severe Verified 05/25/20 11:40 myalgias lisinopril AdvReac Mild Cough Verified 05/25/20 11:40 nortriptyline AdvReac Mild Insomnia Verified 05/25/20 11:40 Home Medications Medication Instructions Recorded Confirmed Type amlodipine 5 mg PO QAM 10/19/17 05/21/20 History ascorbic acid (vitamin C) [Vitamin 500 mg PO QAM 10/19/17 05/21/20 History C] aspirin [Aspir-81] 81 mg PO QAM 10/19/17 05/21/20 History atorvastatin 40 mg PO HS 10/19/17 05/21/20 History glipizide 10 mg PO QAM 10/19/17 05/21/20 History hydralazine 10 mg PO TID 10/19/17 05/21/20 History metformin 1,000 mg PO BIDM 10/19/17 05/21/20 History metoprolol succinate 100 mg PO QAM 10/19/17 05/21/20 History multivitamin 1 tab PO QAM 10/19/17 05/21/20 History omega 3-rhu-fug-fish oil [Fish Oil] 1 tab PO QPM 10/19/17 05/21/20 History omeprazole 20 mg PO QAM 10/19/17 05/21/20 History losartan 100 mg tablet 100 mg PO QAM 11/15/18 05/21/20 History pioglitazone 30 mg tablet 30 mg PO QAM 12/10/18 05/21/20 History celecoxib [Celebrex] 200 mg PO QAM 07/17/19 05/21/20 History oxycodone-acetaminophen 5 mg-325 1 tab PO Q6H PRN #60 tab 05/10/20 05/21/20 Rx mg tablet gabapentin 100 mg PO BID 05/21/20 05/21/20 History glipizide 5 mg PO HS 05/21/20 05/21/20 History venlafaxine 150 mg PO QAM 05/21/20 05/21/20 History Past Med/Surg History Medical History Anxiety Claustrophobia Degenerative disc disease DM type 2 (diabetes mellitus, type 2) NIDDM Dyslipidemia Fibromyalgia GERD (gastroesophageal reflux disease) controlled Hiatal hernia [place] (hard of hearing) HTN (hypertension) IBS (irritable bowel syndrome) Lumbar radiculopathy Obesity Osteoarthritis Overactive bladder Polyneuropathy Spinal stenosis Surgical History H/O carpal tunnel repair R/L ([place] CTR[place] 03[place]25[place]20[place] [facility] [place] H/O: hysterectomy History of cholecystectomy History of colonoscopy History of esophagogastroduodenoscopy (EGD) History of knee replacement Left Hx of bilateral hip replacements Family History Father Diabetes Mother Heart disease Other No family history of adverse response to anesthesia Social History Smoking Status: Never smoker Second Hand Exposure: No; Hx Alcohol Use: No Hx Substance Use: No Preferred Language: [place] Communication Ability: Effective Mysql Database Administrator Required: No Beliefs That Will Affect Care: Spiritism Spiritism Beliefs: Religion marital status: Current Living Situation: Spouse current occupational status: retired Feels Safe at Home: Yes Assistive Devices: Denture - Upper, Glasses and Walker Review of Systems All systems reviewed & are unremarkable except as noted in HPI & below. Physical Exam On physical examination of the right shoulder, she has about 30 degrees forward elevation and 30 degrees of abduction. She is severe pain with range of motion. She is a lot of pain in the subacromial region.. Constitutional WD/WN, vitals as above Eyes PERRL, conjunctivae normal, anicteric sclerae ENMT external ear and nose normal, oropharynx normal Neck trachea midline, no thyromegaly Respiratory normal respiratory effort Cardiovascular RRR, no murmur, no edema Gastrointestinal (Abdomen) normal bowel sounds, soft, nontender, no hepatosplenomegaly Psychiatric A+Ox3, euthymic affect Results & Data Results & Data Laboratory Results . Diagnostic Findings X-rays of the right shoulder do show signs of advanced cuff arthropathy with superior migration of the humeral head on the glenoid.. PG Care Time/CCT Total # of Minutes Spent Total Time Spent with Patient: Total time spent is greater than 50% in coordination of care (as documented) at patient's floor/unit and/or counseling patient: Coding Level of Care Code None Diagnoses Rotator cuff arthropathy of right shoulder M12.811
[~2020-07-19 04:54] MED LIST changes: +ACETAMINOPHEN 500 MG TAB PO SCH; -AMR2 PO; -ASCA500 PO; -ASPI81TA28 PO; +FAMOTIDINE 20 MG TAB PO SCH; +GABAPENTIN 300 MG CAP PO SCH; -GLC/500 PO; -GLC500 PO; -HYDR-2977 PO; -LPT40 PO; +LR 15ML/HR IV SCH; +LR 60ML/HR IV SCH; -MELO7.5T5 PO; -MULTCAP42 PO; -NRV/5 PO; -OMEG-112 PO; -OMEP20CA9 PO; -TPRSR/100 PO; +TRANEXAMIC ACID 1,000 MG **IV Intra-op IV SCH; +TRANEXAMIC ACID 1,000 MG **IV Pre-op IV SCH; -VALS-59 PO; -VENL37.593 PO; +ceFAZolin 2000MG 2,000 MG/15 ML SYR IV SCH; +dexAMETHasone 4 MG TAB PO SCH
[2020-07-19] MEDS ORDERED: LR 15ML/HR IV SCH (06:00)
[2020-07-19] MEDS ORDERED: GABAPENTIN 300 MG CAP PO SCH (06:00)
[2020-07-19] MEDS ORDERED: ceFAZolin 2000MG 2,000 MG/15 ML SYR IV SCH (06:00)
[2020-07-19] MEDS ORDERED: TRANEXAMIC ACID 1,000 MG **IV Intra-op IV SCH (06:00)
[2020-07-19] MEDS ORDERED: dexAMETHasone 4 MG TAB PO SCH (06:00)
[2020-07-19] MEDS ORDERED: ACETAMINOPHEN 500 MG TAB PO SCH (06:00)
[2020-07-19] MEDS ORDERED: TRANEXAMIC ACID 1,000 MG **IV Pre-op IV SCH (06:00)
[2020-07-19] MEDS ORDERED: LR 60ML/HR IV SCH (06:00)
[2020-07-19] MEDS ORDERED: FAMOTIDINE 20 MG TAB PO SCH (06:00)
[2020-07-19] MEDS ORDERED: BUPIVACAINE 0.5 % 5 MG/1 ML PF 10ML VIAL ONE (06:25)
[2020-07-19] MEDS ORDERED: ROCURONIUM BROMIDE 10 MG/ML 5 ML VIAL IV ONE (06:39)
[2020-07-19] MEDS ORDERED: LIDOCAINE 2% 2 ML VIAL/AMP(20MG/ML) INFIL ONE (06:39)
[2020-07-19] MEDS ORDERED: MIDAZOLAM HCL 1 MG/ML 2ML VIAL ONE (06:39)
[2020-07-19] MEDS ORDERED: GLYCOPYRROLATE 0.2 MG/ML VIAL ONE (06:39)
[2020-07-19] MEDS ORDERED: fentaNYL citrate 100 MCG/2 ML VIAL ONE (06:39)
[2020-07-19] MEDS ORDERED: DEXAMETHASONE SOD INJ 4 MG/ML VIAL ONE (06:39)
[2020-07-19] MEDS ORDERED: NEOSTIGMINE METHYLSULFATE 1 MG/ML 10ML VIAL ONE (06:39)
[2020-07-19] MEDS ORDERED: ONDANSETRON INJ 2 MG/ML 2 ML VIAL ONE (06:39)
[2020-07-19] MEDS ORDERED: PROPOFOL IV EMULSION 10 MG/ML 20 ML VIAL IV ONE (06:39)
--- NOTE | 2020-07-19 06:53 | History & Physical Bridge Note ---
Date of Service July 19, 2020 History & Physical Bridge Note I have examined the patient, reviewed the History & Physical and in the interval since the performance of the History & Physical I have noted the following changes of clinical significance: no changes noted
[2020-07-19] MEDS ORDERED: ONDANSETRON INJ 2 MG/ML 2 ML VIAL IV PRN ×2 (06:54→09:44)
[2020-07-19] MEDS ORDERED: ATROPINE SULFATE 0.1 MG/ML 10ML SYR IV PRN (06:54)
[2020-07-19] MEDS ORDERED: fentaNYL citrate 100 MCG/2 ML VIAL IV PRN (06:54)
--- NOTE | 2020-07-19 08:14 | Operative Report ---
PG Post Operative Report Pre & Post Diagnosis Operation Date: 07/19/20 07:00 Pre-Op Diagnosis: Rotator cuff arthropathy of the right shoulder Post-Op Diagnosis: Rotator cuff arthropathy of the right shoulder I identified the patient and participated in the time-out.: Yes Procedure Operation Date: 07/19/20 07:00 Actual Procedures p Right Reverse Total Shoulder Arthroplasty(Right) - Rico Gonzalez DO Surgeon Rico Gonzalez DO Director Experimental Medicine Rico Mills PAC Estimated Blood Loss 200 Findings Consistent with Post-Op Diagnosis Specimens Right humeral head Complications none Disposition Disposition: Recovery Room Indications Kate is a pleasant 70-year-old female who is been dealing with chronic increasing right shoulder pain. X-rays and clinical examination have been diagnostic for cuff arthropathy of the right shoulder. After failing conservati ve treatment, she elected proceed with a right reverse shoulder arthroplasty. Description of Procedure Implants used: I used a [employer] Comprehensive reverse total shoulder arthroplasty system with a size 10 press fit micro humeral stem, a +3 humeral tray and a standard humeral bearing, a 25 mm small augment baseplate with a 6.5 mm central screw and superior and inferior locking screws, and a size 40 mm titanium eccentric glenosphere. Mikayla arrived at [facility] for the above procedure. She was seen in the preoperative holding area and the operative extremity was identified and signed. She was given a preoperative antibiotic, TXA, and an interscalene nerve block. She was taken back to the operating room, laid on table in supine position, and put under general anesthesia. She was then put into the beachchair position. The shoulder was then prepped and draped in sterile fashion. A timeout was done and the patient and the operative extremity was properly identified. A deltopectoral approach was used. Dissection was taken down through the fascia and the deltoid was retracted laterally and the conjoined tendon was retracted medially. The anterior shoulder was exposed. The biceps tendon was chronically torn. The subscapularis was chronically torn. The inferior capsule was released and the humeral head was dislocated. A canal finding reamer was sent down the center of the humeral canal. Sequential reaming up to a size 10 reamer was done. Off that reamer, a proximal humeral resection guide was placed. The proximal humerus was resected at 135 of inclination and 25 of retroversion. Osteophytes were then removed and the glenoid was exposed. Time was spent doing a complete capsular and labral release. The glenoid guide was then placed in the inferior aspect of the glenoid. A 3.2 mm Steinmann pin was then placed into the glenoid vault at 10 of inclination. The glenoid baseplate was then reamed. The final size 25 mm small augment baseplate was then impacted in the place. A 6.5 mm central screw was then placed followed by superior and inferior locking screws. A 40 mm titanium eccentric glenosphere was then impacted into place. Surrounding soft tissues were then injected with 100 cc an orthopedic pain control cocktail. The proximal humerus was then exposed. Sequential broaching of the humerus up to a size 10 broach was done. Off that broach a +3 offset humeral tray was trialed. The shoulder was then reduced, brought through a full range of motion, and felt to be stable. The shoulder was then dislocated and the broach was removed. The final size 10 micro press-fit humeral stem was then impacted into place. A standard humeral bearing was then snapped onto a +3 offset humeral tray. The humeral tray was then impacted onto the humeral stem. The shoulder was once again reduced, brought through a full range of motion, and felt to be stable. The subscapularis was chronically torn and unable to be repaired. A dilute betadyne lavage was then done for 3 minutes. The joint was then irrigated with normal saline solution. Hemostasis was obtained. The interval was closed with 2-0 Vicryl suture. The skin was then closed with 2-0 Vicryl and toya. A Silverlon dressing was placed and the arm was rested in a regular arm sling. She was then extubated and transferred to a hospital bed. She taken to the postanesthesia care unit in stable condition. She tolerated the procedure well. Rico Mills PA-C, was present for the entire procedure. He was critical for patient positioning, prepping, draping, retraction exposure, wound closure and application of sterile dressing. I attest to the content of the Intraoperative Record and any orders documented therein. Any exceptions are noted below.
[2020-07-19] MEDS ORDERED: ROPIVACAINE 0.5% HCL/PF 150 MG, BUPIVACAINE 0.75% MPF 20 ML, EPINEPHrine 30MG/30ML (OR ... INSTIL SCH (08:30)
--- NOTE | 2020-07-19 09:15 | XRay Report ---
XR shoulder RT min 2V routine HISTORY: 70 years-old Female Post shoulder surgery right shoulder total joint arthroplasty COMPARISON: 07/17/2019 TECHNIQUE: 2 views of the right shoulder FINDINGS: Reverse right shoulder total joint arthroplasty and a straight satisfactory alignment. No acute fract ure, dislocation or opaque foreign body. Overlying skin toya are noted along with expected postsur gical soft tissue swelling with deep tissue air. The lungs are hypoinflated. IMPRESSION: Reverse right shoulder total joint arthroplasty with expected postoperative changes. ACT 112: Negative or not required by law. The above report was generated using voice recognition software. It may contain grammatical, syntax o r spelling errors. Electronically signed by: Mikael Mcgraw M.D. 07/19/2020 9:13 AM
--- NOTE | 2020-07-19 09:24 | Anesthesiology Progress Note ---
Date of Service July 19, 2020 Anesthesia Post Procedure Vital Signs Vital Signs: Temp Pulse Pulse Resp BP Pulse Ox 07/19/20 09:11 36.2 C L 07/19/20 09:05 59 L 14 120/68 94 07/19/20 08:55 59 L 14 125/69 97 07/19/20 08:45 59 L 26 H 133/64 100 07/19/20 08:35 36 C L 60 18 132/68 100 07/19/20 05:30 36.7 C 68 20 164/69 H 98 Pain Intensity Right Shoulder: Pain Intensity: 2 Transfer of Care Handoff Completed per policy Notes Mental Status: alert / awake / arousable Patient Amnestic to Procedure: Yes Nausea / Vomiting: adequately controlled Pain: adequately controlled Airway Patency, RR, SpO2: stable & adequate BP & HR: stable & adequate Hydration State: stable & adequate Anesthetic Complications: no major complications apparent
[2020-07-19] MEDS ORDERED: NALOXONE HCL 0.4 MG/1 ML VIAL/CARP IV PRN (09:44)
[2020-07-19] MEDS ORDERED: MAGNESIUM HYDROXIDE SUSP 30 ML UDC PO PRN (09:44)
[2020-07-19] MEDS ORDERED: oxyCODONE HCL IR 5 MG TAB (IMMEDIATE RELEASE) PO PRN (09:44)
[2020-07-19] MEDS ORDERED: bisacodyL 10 MG SUPP PR PRN (09:44)
[2020-07-19] MEDS ORDERED: METOCLOPRAMIDE HCL INJ 5 MG/ML 2 ML VIAL IV PRN (09:44)
[2020-07-19] MEDS ORDERED: HYDROmorphone INJ 0.5 MG/0.5 ML SYR IV PRN (09:44)
[2020-07-19] MEDS ORDERED: PHARMACY GLYCEMIC MGMT CONSULT PRN (09:49)
[2020-07-19] MEDS ORDERED: PHENYLEPHRINE 100MCG/ML 5ML SYR ONE (09:51)
[2020-07-19] MEDS ORDERED: ePHEDrine sulfate 50 MG/ML AMP ONE (09:51)
[2020-07-19] MEDS ORDERED: DEXTROSE 50% 50 ML SYRINGE IV PRN (10:00)
[2020-07-19] MEDS ORDERED: CARBOHYDRATES FOR HYPOGLYCEMIA PO PRN (10:00)
[2020-07-19] MEDS ORDERED: GLUCOSE 10 TABS/TUBE PO PRN (10:00)
[2020-07-19] MEDS ORDERED: GLUCOSE 40% GEL 15 GM TUBE PO PRN (10:00)
[2020-07-19] MEDS ORDERED: GLUCAGON FOR INJ 1 MG VIAL IM PRN (10:00)
--- NOTE | 2020-07-19 10:11 | Pharmacy Report ---
Pharmacy Glycemic Short Note 2 - Date of Service July 19, 2020 - Glycemic Short BSG Results (Last 24 hours): 07/19/20 07/19/20 05:40 08:46 POC Glucose 188 H 212 H OUTPATIENT ANTIDIABETIC REGIMEN: * Metformin 1 g PO BIDM * Glipizide 10 mg PO qAM, 5 mg PO qPM * Pioglitazone 30 mg PO daily * HbA1c: 7.9% (05/25/20) ASSESSMENT: * is a 70 year old female POD #0 s/p right reverse total shoulder * Received dexamethasone 4 mg IV x 1, 6 mg PO x 1, and intra-articular ortho- mix containing dexamethasone * Preop BSG of 188 mg/dL, postop BSG of 212 mg/dL * Will full weight-based stress of 2 dose of NPH to help cover steroids * Aggressive Novolog (weight-based stress of 3) + overnight checks PLAN FOR INPATIENT GLYCEMIC CONTROL: * Hold outpatient oral diabetes medications * consider restarting tomorrow * Basal insulin * NPH 35 units SC x 1 * Bolus insulin * NovoLog per scale ACHS or Q6hrs while NPO * Goal Range: Low 110 mg/dL - High 140 mg/dL * Correction Factor: 15 mg/dL/unit * Nutritional / Prandial insulin per carb ratio of 1 unit per 5 grams CHO consumed * 00,04 checks with slightly looser parameters (see EHR for details)
[2020-07-19] MEDS ORDERED: NovoLIN-N (NPH) PER UNIT CHARGE SQ ONE (10:15)
[2020-07-19] MEDS: hydrALAZINE 10 MG TAB PO SCH ×3 (10:31→20:51)
[2020-07-19] MEDS: LOSARTAN POTASSIUM 50 MG TAB PO SCH (10:31)
[2020-07-19] MEDS: METOPROLOL SUCC 50MG EXT REL TAB PO SCH (10:32)
[2020-07-19] MEDS: SODIUM CHLORIDE 0.9% 1000ML 1,000 ML IV SCH ×2 (10:37→18:19)
[2020-07-19] MEDS: INSULIN ASPART 100 UNITS/ML 3 ML PEN SC SCH ×4 (10:38→20:52)
[2020-07-19] MEDS: VENLAFAXINE HCL XR 150 MG CAPXR PO SCH (11:25)
[2020-07-19] MEDS: MULTIVITAMIN TAB PO SCH (11:26)
[2020-07-19] MEDS: DOCUSATE SODIUM 100 MG CAP PO SCH ×2 (11:26→20:51)
[2020-07-19] MEDS: amLODIPine BESYLATE 5 MG TAB PO SCH (11:26)
[2020-07-19] MEDS: KETOROLAC TROMETHAMINE 15 MG/ML VIAL IV SCH ×3 (11:27→23:07)
[2020-07-19] MEDS: ASPIRIN 81 MG ECTAB PO SCH (11:27)
[2020-07-19] MEDS: ACETAMINOPHEN 500 MG TAB PO SCH ×2 (13:13→20:53)
[2020-07-19] MEDS ORDERED: NURSING DECISION MEDICATION ONE (16:59)
[2020-07-19] MEDS ORDERED: COUGH DROP (SUGAR FREE) LOZ 24 LOZ/1 BOX BUCCAL PRN (17:00)
[2020-07-19] MEDS: ceFAZolin 2000MG 2,000 MG/15 ML SYR IV SCH ×2 (17:00→23:06)
[2020-07-19] MEDS: GABAPENTIN 100 MG CAP PO SCH (20:52)
[2020-07-19] MEDS ORDERED: ATORVASTATIN 40 MG TAB PO SCH (21:00)
[2020-07-19] MEDS ORDERED: SENNA 8.6 MG TAB PO SCH (21:00)
[2020-07-20] MEDS: INSULIN ASPART 100 UNITS/ML 3 ML PEN SC SCH ×3 (00:06→08:59)
[2020-07-20] MEDS: SODIUM CHLORIDE 0.9% 1000ML 1,000 ML IV SCH (02:58)
[2020-07-20] MEDS: ACETAMINOPHEN 500 MG TAB PO SCH (05:16)
[2020-07-20] MEDS: KETOROLAC TROMETHAMINE 15 MG/ML VIAL IV SCH (05:16)
--- NOTE | 2020-07-20 06:35 | Orthopedic Progress Note ---
Date of Service July 20, 2020 Assessment & Plan (1) Status post reverse arthroplasty of right shoulder: Overall she is doing very well. She is not having much pain in the right shoulder. We will give her some lorazepam for the panic attacks. She will be seen by physical therapy today for ambulation and range of motion exercises. She can be discharged home later today. She will follow-up with orthopedics in 2 weeks. Marj Degroot was seen and examined at bedside this morning. Overall she is doing fairly well. She has no pain in her right shoulder. She states she had a panic attack this morning from the strap from the sling. Once that strap was removed she felt better. She has had similar panic attacks in the past. She has no other complaints.. Review of Systems All systems reviewed & are unremarkable except as noted in HPI & below. Physical Exam On physical examination of the right shoulder, the dressing is clean and dry. She does have active motion of her hand but the nerve block has not completely worn off yet.. Results & Data Results & Data Laboratory Results . Diagnostic Findings Postoperative x-rays of the right shoulder show the prosthesis to be in anatomic alignment without any evidence of fracture, dislocation, or loosening. PG Care Time/CCT Total # of Minutes Spent Total Time Spent with Patient: Total time spent is greater than 50% in coordination of care (as documented) at patient's floor/unit and/or counseling patient: Coding Level of Care Code 00310 Post Operative Follow-Up Diagnoses Status post reverse arthroplasty of right shoulder Z96.611
--- NOTE | 2020-07-20 06:37 | Discharge Summary ---
Date of Service July 20, 2020 Principal Diagnosis Same as "Discharge Diagnosis" noted below under Discharge Instructions. Discharge Exam On physical examination of the right shoulder, the dressing is clean and dry. She does have active motion of her hand but the nerve block has not completely worn off yet.. Discharge Data Procedures Performed Operation Date: 07/19/20 07:00 Actual Procedures p Right Reverse Total Shoulder Arthroplasty(Right) - Rico Gonzalez DO Ordered Studies 06/21/20 05:00 US - OR guided needle placemen Routine 07/19/20 05:00 US - OR guided needle placemen Routine Hospital Course (1) Status post reverse arthroplasty of right shoulder: On July 19, 2020 Mikayla arrived at [facility] and underwent a right reverse shoulder replacement without complication. She had a general anesthetic and a right interscalene nerve block. Postoperatively she was placed in a sling and transferred to the general orthopedic floors. Her hospital course was uneventful. On postop day #1 her vital signs were stable and her pain was well controlled. She was able to participate well with physical therapy doing ambulation and range of motion exercises. She was then discharged home. She will follow-up with orthopedics in 2 weeks. PG Care Time/CCT Total # of Minutes Spent Total Time Spent with Patient: Total time spent is greater than 50% in coordination of care (as documented) at patient's floor/unit and/or counseling patient: Discharge Plan Discharge Items Patient Disposition: Home - Home Health Services Reason For Visit: Right Degenerative Joint Disease Discharge Diagnosis: Right reverse shoulder replacement Activity: As commented below Non-emergency contact: Surgeon Call non-emergency contact if: your wound has increased redness and your wound has increased drainage Follow-up/Referrals: Jeff Montague MD [Primary Care Provider] - Diet: Regular Ambulatory Orders: Basic Metabolic Panel (Routine) Timeframe: 20200525 Location: Determined by Patient Ordered By: Rico Gonzalez Complete Blood Count with Diff (Routine) Timeframe: 20200525 Location: Determined by Patient Ordered By: Rico Gonzalez XR chest 2V PA/lateral (Routine) Timeframe: 20200525 Location: Determined by Patient Ordered By: Rico Gonzalez ECG 12 lead EKG (Routine) Timeframe: 20200525 Location: Determined by Patient Ordered By: Rico Gonzalez Hemoglobin A1C (Routine) Timeframe: 20200525 Location: Determined by Patient Ordered By: Rico Gonzalez Prothrombin Time INR (Routine) Timeframe: 20200525 Location: Determined by Patient Ordered By: Rico Gonzalez Partial Thromboplastin Time (Routine) Timeframe: 20200525 Location: Determined by Patient Ordered By: Rico Gonzalez Type and Screen (Routine) Timeframe: 20200525 Location: Determined by Patient Ordered By: Rico Gonzalez Addtl Attending Provider Instructions: Activity and Therapy Recommendations: * If you are using [facility] then therapy will be provided at your home until they feel you have accomplished all of your goals. * If you are using [facility] then Physical Therapy will be provided until they feel you are ready to start Outpatient Physical Therapy. * If you are not using home therapy then Outpatient Physical Therapy should start about 3-5 days from your day of surgery. Therapy will last about 8-12 weeks * Wear your sling for 3 weeks, unless otherwise instructed. You may remove your sling to shower and to dress, but otherwise, you should be in your sling at all times, including while sleeping * The shoulder replacement is very stable and you can use your hand while in the sling * You were shown a series of exercises in the hospital. Do these exercises daily including the exercises you were shown in physical therapy. Medications: * Narcotic You will likely be sent home from the hospital with a prescription for the narcotic pain medication that worked best throughout your stay. * Other medications may be prescribed for specific circumstances. If you have any questions, please call the office at . * Resume previous home medications unless otherwise instructed Dressing Care: Leave the Silverlon dressing in place for 7 days. After 7 days you may remove the dressing. If the incision is not draining then you may leave the toya open to air. If there is a little bit of drainage or if the toya are getting stuck on your clothing then cover the incision with a dry dressing. The toya will be removed at your 2 week follow-up appointment. Showering: You may shower with the Silverlon dressing in place. Do not let the shower spray hit the dressing directly. Pat the Silverlon dressing dry. If the dressing becomes wet underneath, then simply remove the dressing. Keep the incision dry until you are 7 days out from the day of surgery. After 7 days you may remove the Silverlon dressing and shower with the toya exposed. Let soapy water run over the toya and pat them dry. Do not scrub or soak the incision. Things To Watch For: * Drainage from the incision site that occurs more than one week after your surgery. * Increased redness at the incision site. * Fever above 102 degrees Fahrenheit. * Unusual chest pain or shortness of breath. * Call [facility] at with any of the above problems Follow-Up Visit: Follow-up with Dr. Gonzalez's PA (Rico Mills) 2-3 weeks after your day of surgery. He will remove your toya and answer any questions. If you have any additional questions or concerns, Dr Gonzalez is usually in the office at the same time and will be available An appointment was probably scheduled when you signed-up for surgery in the office. If you have any questions call More detailed instructions as well as Frequently Asked Questions were provided in a folder by our office when you signed-up for surgery. Please review these instructions when you get home. If you have any further questions or concerns, please feel free to call the office at [phone] Pending Studies at Discharge: No Stand-Alone Forms: My [facility] Medications and DC Order Prescriptions: New lorazepam 0.5 mg tablet 0.5 mg PO Q8H PRN (Reason: anxiety) Qty: 14 RF: 0 Continued losartan 100 mg tablet 100 mg PO QAM RF: 0 pioglitazone [Actos] 30 mg tablet 30 mg PO QAM RF: 0 oxycodone-acetaminophen [Percocet] 5-325 mg tablet 1 tab PO Q6H PRN (Reason: pain) Qty: 60 RF: 0 celecoxib [Celebrex] 200 mg Capsule 200 mg PO QAM RF: 0 multivitamin Tablet 1 tab PO QAM RF: 0 atorvastatin 40 mg tablet 40 mg PO HS RF: 0 hydralazine 10 mg Tablet 10 mg PO TID RF: 0 metoprolol succinate 100 mg tablet extended release 24 hr 100 mg PO QAM RF: 0 amlodipine 5 mg tablet 5 mg PO QAM RF: 0 aspirin [Aspir-81] 81 mg Tablet,Delayed Release (Dr/Ec) 81 mg PO QAM RF: 0 ascorbic acid (vitamin C) [Vitamin C] 500 mg Tablet 500 mg PO QAM RF: 0 metformin 1,000 mg tablet 1,000 mg PO BIDM RF: 0 omeprazole 20 mg capsule,delayed release(DR/EC) 20 mg PO QAM RF: 0 glipizide 5 mg tablet 10 mg PO QAM RF: 0 omega 0-rde-bzn-fish oil [Fish Oil] 1,000 mg (120 mg-180 mg) Capsule 1 tab PO QPM RF: 0 glipizide 5 mg Tablet 5 mg PO HS RF: 0 gabapentin 100 mg Tablet 100 mg PO BID RF: 0 venlafaxine 150 mg Tablet Extended Release 24hr 150 mg PO QAM RF: 0 amlodipine 5 mg tablet RF: 0 Discharge Orders: Discharge Order (Routine); Ordered 07/20/20 Ordered By: Rico Delarosa/Other Patient Handouts: High Blood Sugar (Hyperglycemia), Managing Type 2 Diabetes, A1C Admission Data Admit Date/Time: 07/19/20 09:30 Attending Provider: Rico Gonzalez Admit Provider: Rico Gonzalez Primary Care Provider: Jeff Montague
[2020-07-20] MEDS: amLODIPine BESYLATE 5 MG TAB PO SCH (08:07)
[2020-07-20] MEDS: METOPROLOL SUCC 50MG EXT REL TAB PO SCH (08:07)
[2020-07-20] MEDS: VENLAFAXINE HCL XR 150 MG CAPXR PO SCH (08:07)
[2020-07-20] MEDS: LOSARTAN POTASSIUM 50 MG TAB PO SCH (08:07)
[2020-07-20] MEDS: GABAPENTIN 100 MG CAP PO SCH (08:07)
[2020-07-20] MEDS: ASPIRIN 81 MG ECTAB PO SCH (08:07)
[2020-07-20] MEDS: hydrALAZINE 10 MG TAB PO SCH (08:07)
[2020-07-20] MEDS: MULTIVITAMIN TAB PO SCH (08:07)
[2020-07-20] MEDS: DOCUSATE SODIUM 100 MG CAP PO SCH (08:07)
== END 2020-07-20 12:11 | disposition home or self-care (01) ==
LOC: ASU 04:54 → INTOOBSV 09:30 → 3E 09:30